=== PATIENT | female | born 1930 | race Caucasian/White ===

== ENCOUNTER 2017-05-22 06:44 | Inpatient (IN) ==
[2017-05-22] MEDS ORDERED: DILTIAZEM 50 MG/10 ML VIAL IV STA ×2 (07:57→09:20)
[2017-05-22] MEDS ORDERED: DILTIAZEM 50 MG/10 ML VIAL IV ONE (07:58)
[2017-05-22 08:27] LABS: Blood Urea Nitrogen 10 MG/DL (7-18); Calcium 8.8 MG/DL (8.5-10.1); Glucose 214 MG/DL (74-106); Magnesium 1.9 MG/DL (1.8-2.4); Osmolality,Calculated 277.8 MOS/KG (273-304); Potassium 3.9 MMOL/L (3.5-5.1); Sodium 137 MMOL/L (136-145)
[2017-05-22 08:31] LABS: Basophils % 0.4 % (0.0-0.8); Eosinophils # 0.3 10*3/uL (0.0-0.87); Eosinophils % 2.8 % (0.00-10.9); Hematocrit 34.6 VOL% (35.7-47.0); Hemoglobin 11.6 GM/DL (12.0-16.0); Immature Granulocytes % 0.5 %; Immature Granulocytes Absolute 0.05 #; Lymphocytes # 1.3 10*3/uL (1.4-4.0); Lymphocytes % 14.4 % (21.3-54.2); Mean Corpuscular HGB Conc 33.5 GM/DL (32-36); Mean Corpuscular Hemoglobin 29 PG (27-34); Mean Corpuscular Volume 87.8 FL (87-102); Monocytes # 0.4 10*3/uL (0.11-0.8); Monocytes % 4.7 % (1.7-12.7); Neutrophils # 7.1 10*3/uL (1.4-7.4); Neutrophils % 77.2 % (38.7-73.9); Platelet Count 238 T/CUMM (130-400); Red Blood Count 3.94 MC/CUMM (3.8-5.5); Red Cell Distribution Width 13.2 % (9.3-17.3); Troponin I Only 0.098 NG/ML (0.00-0.045); White Blood Count 9.2 T/CUMM (4-12)
--- NOTE | 2017-05-22 08:32 | Emergency Department Note ---
IJoe Emily, am scribing for, and in the presence of, Rey Trevino MD 07: 49. Belinda Mujica Charles R, MD, personally performed the services described in this documentation, ascribed by Haleigh Diaz in my presence, and it is both accurate and complete 832 . Arrival - Arrival Chief Complaint: Chest Pain Stated Complaint: chest pain/recent pacemaker ED Nursing Triage Note: TO ER PER WHEELCHAIR WITH COMPLAINT OF SUDDEN ONSET OF CHEST PAIN THAT BEGAIN THIS AM AT 0430. PATIENT STATES IT WOKE HER FROM HER SLEEP. DENIES RADIATION WITH PAIN. FEELS LIKE HER HEART IS RACING. PACEMAKER PLACED 05/16/[address] DIAZ. Mode of Arrival: Wheelchair Limitations: No Limitations Source: Patient Time Seen by Provider: 05/22/17 07:18 - History of Present Illness HPI Narrative: Pt is a 87 y/o female who came to ED with c/o racing heart rate that woke her up at 400 am this morning. Pt notes having issues of heart palpitations that increase or decrease since she was 3 yrs of age. Pt reports having a pacemaker placed on 05/16/[address] Diaz and sees Dr. Baca. Pt has chest burning currently in ED, but denies SOB, nausea, or any other pains. Pt describes chest burning to acid reflux feeling, as "just annoying, nagging." Onset (ago): hour(s) Consistency: constant Severity: mild Severity scale (1-10): 3 Quality: burning Allergies/Adverse Reactions: Allergies Allergy/AdvReac Type Severity Reaction Status Date / Time Sulfa (Sulfonamide Allergy Unknown/Unable Verified 05/22/17 07:16 Antibiotics) to obtain Home Medications: Home Medications Medication Instructions Recorded Confirmed Type Ergocalciferol (Vitamin D2) 50,000 unit PO Q7D 07/09/16 05/16/17 History [Vitamin D2] Lisinopril 10 mg PO DAILY 07/09/16 05/16/17 History Aspirin EC Tab 81 mg PO DAILY 05/15/17 05/16/17 History Glipizide/Metformin HCl 1 each PO BID 05/15/17 05/16/17 History [Glipizide-Metformin 2.5-500 mg] Pantoprazole Tab [Protonix Tab] 40 mg PO DAILY 05/15/17 05/16/17 History Metoprolol Tartrate Tab [Lopressor 50 mg PO BID tablet 05/17/17 Rx Tab] Review of System - Review of System 12 point system: reviewed and no additional remarkable complaints except as stated - Review of System Constitutional: Absent: chills, fever, weakness Head/Ears/Nose/Throat: Absent: nasal drainage Respiratory: Absent: respiratory distress Cardiovascular: Present: palpitations (rapid). Absent: chest pain (chest burning like acid reflux), syncope Gastrointestinal: Absent: abdominal pain, nausea, vomiting Musculoskeletal: Absent: arm pain, neck pain Skin: Absent: rash Neurological: Absent: headache Psychiatric: Absent: anxiety Medical,Surgical,& Family Hx - Medical History Cardio: History of: Cardiac Dysrhythmia, Hypertension, Pacemaker (05/16/17) Neurology: No history of: Seizures Endocrine: History of: Diabetes Mellitus (NIDDM) Respiratory: History of: Asthma Genitourinary: History of: Recurring Urinary Tract Infections Gastrointestinal: History of: GERD Musculoskeletal: History of: Musculoskeletal Problems (left shoulder pain (? arthritis)) - Surgical History HEENT Surgeries: Surgical HX of: Eye Surgery (cataract) Abdominal Surgeries: Surgical HX of: Appendectomy Reproductive Surgeries: Surgical HX of;: Breast Surgery, Hysterectomy - Family History Family History: Reports;: Family Diabetes (mother later in life), Family Hypertension (mother and father) - Social History Smoking Status: Former smoker Frequency of Alcohol Use: None Type of Drug Use: None Marital Status: Single Lives With:: Alone Functional capacity: independent ambulation Exam Vital Signs: Vital Signs Temperature 97.2 F L 05/22/17 06:59 Pulse Rate 133 H 05/22/17 10:15 Respiratory Rate 16 05/22/17 10:15 Blood Pressure 133/85 05/22/17 10:15 O2 Sat by Pulse Oximetry 100 05/22/17 10:15 - General General appearance: alert, in no apparent distress - Head Head exam: Present: atraumatic, normocephalic - Eye Eye exam: Present: PERRL, EOMI - ENT ENT exam: Present: mucous membranes moist. Absent: mucous membranes dry - Neck Neck exam: Present: full ROM, trachea midline - Chest Chest inspection: Present: symmetric chest wall rise - Respiratory Respiratory exam: Present: normal lung sounds bilaterally. Absent: respiratory distress - Cardiovascular Cardiovascular exam: Present: tachycardia, normal heart sounds - Extremities Exam Extremities exam: Present: full ROM. Absent: tenderness, pedal edema - Neurological Exam Neurological exam: Present: alert, oriented X3, CN II-XII intact. Absent: motor sensory deficit - Psychiatric Psychiatric exam: Present: normal affect, normal mood - Skin Skin exam: Present: warm, dry Course - Consultations Consultation #1: Dr. Toro will admit patient Time: 10:32 Results - Labs CBC & BMP: 05/22/17 07:35 05/22/17 07:35 Lab Results: I have reviewed the patients labs Labs: Laboratory Tests 05/22/17 05/22/17 07:35 07:35 Hgb 11.6 L Hct 34.6 L Neut % (Auto) 77.2 H Lymph % (Auto) 14.4 L Lymph # (Auto) 1.3 L Glucose 214 H Troponin I 0.098 H - Diagnostic Findings Procedure: Chest x-ray: report reviewed by me (Interval development of diffuse bilateral interstitial infiltrates versus edema superimposed on chronic changes. ) Disposition Clinical Impression: Atypical chest pain, Tachyarrhythmia, Elevated troponin Case discussed with: patient, patient's family Disposition: Still a Patient Condition: Stable Time of Disposition: 10:33
[2017-05-22] MEDS ORDERED: MORPHINE 2 MG/1 ML SYRINGE IV STA (08:33)
[2017-05-22] MEDS ORDERED: ONDANSETRON 4 MG/2 ML VIAL IV STA (08:33)
[2017-05-22] MEDS ORDERED: NITROGLYCERIN 2% OINT 1 INCH/GM PACK TOP STA (08:33)
[2017-05-22] MEDS ORDERED: ASPIRIN 325 MG TABLET PO STA (08:33)
[2017-05-22] MEDS ORDERED: ALUM/MAG/SIMETH/LIDO VISC 1:1 30 ML BOTTLE PO STA (08:33)
[2017-05-22] MEDS ORDERED: ONDANSETRON 4 MG/2 ML VIAL ONE (08:36)
[2017-05-22] MEDS ORDERED: MORPHINE 2 MG/1 ML SYRINGE ONE (08:36)
[2017-05-22] MEDS ORDERED: ASPIRIN 325 MG TABLET ONE (08:36)
[2017-05-22] MEDS ORDERED: ALUM/MAG/SIMETH/LIDO VISC 1:1 30 ML BOTTLE PO ONE (08:36)
[2017-05-22] MEDS ORDERED: NITROGLYCERIN 2% OINT 1 INCH/GM PACK TOP ONE (08:36)
[2017-05-22 08:49] LABS: INR 0.9
--- NOTE | 2017-05-22 08:55 | XRay Report ---
Chest, 2 views History is palpitations and chest pain Comparison 05/17/2017. Heart is mildly enlarged with pacemaker present The lungs are diffusely hyperexpanded There has been development of increasing mild bilateral interstitial opacities without more focal consolidation. Impression: Interval development of diffuse bilateral interstitial infiltrates versus edema superimposed on chronic changes PROCEDURE INTERPRETED AT [facility] DEPARTMENT OF RADIOLOGY Final Report Signed by: Dr. Mila Mahmood
[2017-05-22] MEDS ORDERED: METOPROLOL TARTRATE 5 MG/5 ML VIAL IV STA (10:32)
[2017-05-22] MEDS ORDERED: METOPROLOL TARTRATE 5 MG/5 ML VIAL IV ONE (10:35)
[2017-05-22] MEDS ORDERED: METOPROLOL TARTRATE 5 MG/5 ML VIAL IV SCH (12:00)
[2017-05-22 12:07] LABS: Alanine Aminotransferase 28 U/L (13-56); Albumin 3.8 G/DL (3.4-5.0); Alkaline Phosphatase 82 U/L (45-117); Aspartate Amino Transferase 23 U/L (0-37); Bilirubin,Total < 0.39 MG/DL (0.2-1.0); Blood Urea Nitrogen 8 MG/DL (7-18); Calcium 9.3 MG/DL (8.5-10.1); Glucose 207 MG/DL (74-106); Potassium 3.9 MMOL/L (3.5-5.1); Sodium 136 MMOL/L (136-145); Total Protein 7.6 G/DL (6.4-8.3)
[2017-05-22] MEDS ORDERED: MAGNESIUM SULF RIDER 2 GM in PREMIX 1 EACH IV PRN (12:13)
[2017-05-22] MEDS ORDERED: ONDANSETRON 4 MG/2 ML VIAL IV PRN (12:13)
[2017-05-22] MEDS ORDERED: MAGNESIUM SULF RIDER 4 GM in PREMIX 1 EACH IV PRN (12:13)
[2017-05-22] MEDS ORDERED: MORPHINE 2 MG/1 ML SYRINGE IV PRN (12:13)
[2017-05-22] MEDS ORDERED: POTASSIUM CHLORIDE 20 MEQ TABLET PO PRN (12:13)
[2017-05-22] MEDS ORDERED: ENOXAPARIN 40 MG/0.4 ML SYRINGE SUBCUT SCH (12:13)
--- NOTE | 2017-05-22 13:18 | Cardiology History & Physical ---
<Mercy Davis - Last Filed: 05/22/17 14:51> Assessment and Plan - Time spent with patient Time spent with patient: Greater than 30 minutes (1) Tachyarrhythmia Status: Acute Assessment and plan: SEE PLAN OF CARE LISTED BELOW. Current Visit: Yes (2) Elevated troponin Status: Acute Assessment and plan: SEE PLAN OF CARE LISTED BELOW. Current Visit: Yes (3) Atypical chest pain Status: Acute Assessment and plan: SEE PLAN OF CARE LISTED BELOW. Current Visit: Yes (4) Pacemaker Status: Acute Assessment and plan: SEE PLAN OF CARE LISTED BELOW. Current Visit: No (5) Diabetes mellitus Status: Chronic Assessment and plan: SEE PLAN OF CARE LISTED BELOW. Current Visit: No (6) Hypertension Status: Chronic Assessment and plan: SEE PLAN OF CARE LISTED BELOW. Current Visit: No (7) PAF (paroxysmal atrial fibrillation) Status: Chronic Assessment and plan: SEE PLAN OF CARE LISTED BELOW. Current Visit: No (8) Sick sinus syndrome Status: Resolved Assessment and plan: SEE PLAN OF CARE LISTED BELOW. Current Visit: No History of Present Illness Chief complaint: Tachyarrhythmia. 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 Perez is a 87 year old female without known history of coronary artery disease, routinely followed by Dr. Baca. Cardiac risk factors include: Diabetes, hypertension, advanced age, family history of CAD (mother) and former smoker (quit in 1954). 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 Diaz May 16, 2017. Most recent cardiac stress test was performed in 2004. Gated EF estimated at 75%. Normal segmental wall motion. Perfusion scan without evidence to suggest significant reversibility or scar. Low risk study. Echocardiogram performed June 2016 revealed hyperdynamic LV systolic function with ejection fraction estimated at 70% without obvious wall motion abnormality. Moderate pulmonary hypertension with pulmonary artery pressure 48 mmHg. Patient was just recently discharged from the hospital May 17, 2017 after having pacemaker implantation May. Patient was without complications. At the time of discharge home, her Eliquis was held. She has not followed up with Dr. Diaz cardiology clinic yet. Now presenting to [facility] today with complaints of chest pain and heart racing. She reports that she was awoken around 4:00 this morning with atypical chest pain. She describes his pain as a burning sensation. She associated this with reflux. Nonradiating. Not associated with shortness of breath, lightheadedness or syncope. Denies nausea and diaphoresis. No exertional component. Associated with heart racing and palpitations. This atypical chest pain and heart racing continued until she arrived in the emergency department around 7 AM and received medications to slow her heart rate. She just recently discharged home last week after having pacemaker. She reports that she has been doing reasonably well until early this morning. She has not been taking her Eliquis as this was discontinued at discharge. No TIA symptoms. Patient has been admitted under cardiology service. Housed on the telemetry unit. Patient was seen and examined on the telemetry unit. Patient is without complaints of chest pain, heaviness or tightness. After reviewing patient's cardiac monitor technician I suspect that patient is in atrial flutter with rapid ventricular response as rhythm appears regular. No P waves identified. Elevated troponin. Suspect demand ischemia related to patient's ongoing RVR. Will optimize rate control and continue to level cardiac biomarkers and EKGs. If complaints of chest pain continue after rate control achieved could consider further cardiac workup. Patient with history of paroxysmal A. fib. RVR continues, heart rate currently in the 130s. Patient asymptomatic. Will optimize rate control. Received IV diltiazem and emergency department. Will initiate Cardizem drip. Nurse at bedside and administering IV Lopressor. Will reinitiate patient's Eliquis to provide stroke prevention. We will begin sotalol. Monitor QT interval with daily EKG. I will further discuss with Dr. Toro and await his additional recommendations. IMPRESSION AND PLAN: 1. TACHYARRHYTHMIA, SUSPECT ATRIAL FLUTTER WITH RAPID VENTRICULAR RESPONSE: Patient with history of paroxysmal A. fib. RVR continues, heart rate currently in the 130s. Patient asymptomatic. Will optimize rate control. Received IV diltiazem and emergency department. Will initiate Cardizem drip. Nurse at bedside, administering IV Lopressor. Will reinitiate patient's Eliquis to provide stroke prevention. We will begin sotalol. Monitor QT interval with daily EKG. Echocardiogram ordered. Results pending. I will further discuss with Dr. Toro and await his additional recommendations. 2. ATYPICAL CHEST PAIN: Suspect demand ischemia related to patient's ongoing RVR. Will optimize rate control. If patient continues to have complaints of chest pain after heart rate has been optimized and consider further cardiac workup. Continue to cycle cardiac biomarkers and EKGs. Fasting lipid panel. Further discuss with Dr. Toro and await his additional recommendations regarding the need for further workup. 3. ELEVATED TROPONIN: Suspect that this is demand ischemia related to patient' s RVR. We will continue to cycle cardiac biomarkers and EKGs. Patient now without chest pain, heaviness or tightness. Continue aspirin. Fasting lipid panel. Will get echocardiogram. Results pending. 4. SICK SINUS SYNDROME, NOW STATUS POST DUAL-CHAMBER PACEMAKER: Dual-chamber pacemaker placed Dr. Diaz May 16, 2017. Pacemaker pocket healing well without signs of infection. 5. HYPERTENSION: Home medications reinitiated. Will monitor blood pressure and adjust medications accordingly this hospitalization. 6. DIABETES: Sliding scale insulin. Accu-Cheks before meals and at bedtime. 7. CHRONIC ANTICOAGULATION: Patient's Eliquis was not reinitiated at discharge last week. I will reinitiate patient's Eliquis dosage for stroke prevention. 8. ANEMIA: Stable. Monitor with daily CBC. Home Medications Medication Instructions Recorded Confirmed Type Ergocalciferol (Vitamin D2) 50,000 unit PO Q7D 07/09/16 05/22/17 History [Vitamin D2] Lisinopril 10 mg PO DAILY 07/09/16 05/22/17 History Aspirin EC Tab 81 mg PO DAILY 05/15/17 05/22/17 History Glipizide/Metformin HCl 1 each PO BID 05/15/17 05/22/17 History [Glipizide-Metformin 2.5-500 mg] Pantoprazole Tab [Protonix Tab] 40 mg PO DAILY 05/15/17 05/22/17 History Metoprolol Tartrate Tab [Lopressor 50 mg PO BID tablet 05/17/17 05/22/17 Rx Tab] Allergies Allergy/AdvReac Type Severity Reaction Status Date / Time Sulfa (Sulfonamide Allergy Unknown/Unable Verified 05/22/17 07:16 Antibiotics) to obtain - Constitutional Constitutional: Present: as per HPI, fatigue, malaise, weakness. Absent: chills , fever(s), frequent falls, headache(s), lethargy, weight gain, weight loss - Cardiovascular Cardiovascular: Present: as per HPI, chest pain at rest, palpitations. Absent: chest pain with activity, claudication, diaphoresis, dyspnea, dyspnea on exertion, edema, radiating jaw, neck or arm pain, lightheadedness, orthopnea, PND - Respiratory Respiratory: Present: as per HPI. Absent: cough, dyspnea, hemoptysis, dyspnea on exertion, wheezing, snoring, pain on inspiration, change in phlegm color - Gastrointestinal Gastrointestinal: Present: as per HPI, heartburn. Absent: abdominal pain, change in bowel habits, coffee ground emesis, hematemesis, hematochezia, melena , nausea, vomiting - Neurological Neurological: Present: as per HPI. Absent: abnormal gait, abnormal speech, behavioral changes, disequilibrium, dizziness, focal weakness, frequent falls, headache(s), syncope - Psychiatric Psychiatric: Present: as per HPI. Absent: anxiety, depression, panic attacks - Hematologic/Lymphatic Hematologic/Lymphatic: Present: as per HPI. 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 arthritis)) - Surgical History HEENT Surgeries: Surgical HX of: Eye Surgery (cataract) Abdominal Surgeries: Surgical HX of: Abdominal Surgery, Appendectomy Reproductive Surgeries: Surgical HX of;: Breast Surgery, Hysterectomy - Family History Family History: Reports;: Family Diabetes (mother later in life), Family Heart Disease, Family Hypertension (mother and father) - Social History Smoking Status: Former smoker Frequency of Alcohol Use: None Type of Drug Use: None Functional capacity: independent ambulation Cardiology Physical Exam - Constitutional Vitals: Vital Signs Temp Pulse Resp BP Pulse Ox 97.2 F L 138 H 20 158/96 94 L 05/22/17 06:59 05/22/17 12:18 05/22/17 12:18 05/22/17 12:18 05/22/17 12:18 Intake and Output 05/21/17 05/22/17 05/22/17 22:59 06:59 14:59 Other: Weight 130 lb 130 lb Patient Weight 05/23/17 06:59 Weight 130 lb Exam: General: Appears well with no apparent distress. Pleasant and cooperative. Appears comfortable. HEENT: PERRL, normocephalic, atraumatic. Mucous membranes moist. No jaundice noted. Conjunctiva moist and clear, sclerae anicteric Neck: No JVD/HJR, no thyromegaly or lymphadenopathy noted. Cardiac: Regular rhythm, tachycardia. No murmur rub or gallop. Chest wall: Dressing noted to left upper chest. Pacemaker pocket healing well without signs of infection. Lungs: Clear to auscultation without accessory muscle use to assist the respiratory pattern. Not requiring oxygen. Abdomen: Soft, bowel sounds normoactive. Nontender and nondistended. No abdominal bruit or thrill noted. No masses noted. Extremities: No clubbing, cyanosis noted. No edema noted. Upper extremity pulses 2+. Lower extremity pulses 2+. Capillary refill less than 3 seconds. Skin: No unusual lesions or rashes. No skin breakdown appreciated. Neuro: Awake, alert and oriented 3. Moves all extremities well without hemiparesis or paralysis. No essential tremor is appreciated. Result/EKG - Labs CBC & BMP: 05/22/17 07:35 05/22/17 07:35 Lab Results: I have reviewed the past 24 hour labs Labs: Laboratory Results - last 24 hr 05/22/17 05/22/17 05/22/17 07:35 07:35 07:35 WBC 9.2 RBC 3.94 Hgb 11.6 L Hct 34.6 L MCV 87.8 MCH 29 MCHC 33.5 RDW 13.2 Plt Count 238 MPV 12.0 Neut % (Auto) 77.2 H Lymph % (Auto) 14.4 L Greer % (Auto) 4.7 Eos % (Auto) 2.8 Baso % (Auto) 0.4 Neut # (Auto) 7.1 Lymph # (Auto) 1.3 L Greer # (Auto) 0.4 Eos # (Auto) 0.3 Baso # (Auto) 0.0 Immature Gran % 0.5 Nucleated RBC % 0.0 Immature Gran # 0.05 Nucleated RBCs # 0.00 Immature Plt Fraction 0.0 INR 0.9 PT Patient/Control Mix 10.0 Sodium 137 Potassium 3.9 Chloride 102 Carbon Dioxide 26 Anion Gap 12.9 BUN 10 Creatinine 0.80 GFR Calculation 64 BUN/Creatinine Ratio 12.00 Glucose 214 H Calculated Osmolality 277.8 Calcium 8.8 Magnesium 1.9 Total Bilirubin AST ALT Alkaline Phosphatase Total Creatine Kinase 94 CK-MB (CK-2) 1.5 Troponin I 0.098 H B-Natriuretic Peptide Total Protein Albumin Globulin Albumin/Globulin Ratio 05/22/17 05/22/17 07:35 08:33 WBC RBC Hgb Hct MCV MCH MCHC RDW Plt Count MPV Neut % (Auto) Lymph % (Auto) Greer % (Auto) Eos % (Auto) Baso % (Auto) Neut # (Auto) Lymph # (Auto) Greer # (Auto) Eos # (Auto) Baso # (Auto) Immature Gran % Nucleated RBC % Immature Gran # Nucleated RBCs # Immature Plt Fraction INR PT Patient/Control Mix Sodium 136 Potassium 3.9 Chloride 102 Carbon Dioxide 25 Anion Gap 12.9 BUN 8 Creatinine 0.70 GFR Calculation 76 BUN/Creatinine Ratio 11.00 Glucose 207 H Calculated Osmolality 275.0 Calcium 9.3 Magnesium 2.0 Total Bilirubin < 0.39 AST 23 ALT 28 Alkaline Phosphatase 82 Total Creatine Kinase CK-MB (CK-2) Troponin I B-Natriuretic Peptide 162 H Total Protein 7.6 Albumin 3.8 Globulin 3.8 H Albumin/Globulin Ratio 1.0 L <Jake Toro - Last Filed: 05/22/17 15:10> History of Present Illness History of present illness: Cardiology addendum Patient seen with nurse Mercy davis and chart reviewed patient examined Recurrent palpitations shortness of breath around 4 AM this morning. EKG shows atrial flutter ventricular rate 130-140 range. Chest x-ray shows hyperexpanded lung duron with mild cardiomegaly and early CHF. BNP level 162. Troponin level 1.94 hemoglobin 11.6 She denies chest pain but feels short of breath Status post [employer] Advisa dual-chamber pacemaker May 16, 2017 by . She has history of sick sinus syndrome with tachycardia and bradycardia and paroxysmal atrial fibrillation. Patient was discharged home on December 18 with Lopressor 50 mg twice daily and Eliquis 2.3 g twice daily. Also takes lisinopril 10 mg daily for hypertension. He also takes glipizide and Metformin 2.5/500 twice daily for type 2 diabetes. Impression Patient has failed Lopressor. Begin sotalol 80 mg twice daily and IV Cardizem for rate control for now Continue Eliquis 2.5 mg twice daily Echo Doppler Repeat biomarkers. Discussed with patient, her daughter and her son-in-law Cardiology Physical Exam - Constitutional Vitals: Vital Signs Temp Pulse Resp BP Pulse Ox 97.2 F L 138 H 20 158/96 94 L 05/22/17 06:59 05/22/17 12:18 05/22/17 12:18 05/22/17 12:18 05/22/17 12:18 Intake and Output 05/21/17 05/22/17 05/22/17 23:59 07:59 15:59 Other: Voiding Method Toilet # Voids 1 Weight 58.967 kg 58.967 kg Patient Weight 05/22/17 23:59 Weight 58.967 kg Result/EKG - Labs CBC & BMP: 05/22/17 07:35 05/22/17 07:35 Labs: Laboratory Results - last 24 hr 05/22/17 05/22/17 05/22/17 07:35 07:35 07:35 WBC 9.2 RBC 3.94 Hgb 11.6 L Hct 34.6 L MCV 87.8 MCH 29 MCHC 33.5 RDW 13.2 Plt Count 238 MPV 12.0 Neut % (Auto) 77.2 H Lymph % (Auto) 14.4 L Greer % (Auto) 4.7 Eos % (Auto) 2.8 Baso % (Auto) 0.4 Neut # (Auto) 7.1 Lymph # (Auto) 1.3 L Greer # (Auto) 0.4 Eos # (Auto) 0.3 Baso # (Auto) 0.0 Immature Gran % 0.5 Nucleated RBC % 0.0 Immature Gran # 0.05 Nucleated RBCs # 0.00 Immature Plt Fraction 0.0 INR 0.9 PT Patient/Control Mix 10.0 Sodium 137 Potassium 3.9 Chloride 102 Carbon Dioxide 26 Anion Gap 12.9 BUN 10 Creatinine 0.80 GFR Calculation 64 BUN/Creatinine Ratio 12.00 Glucose 214 H POC Glucose Calculated Osmolality 277.8 Calcium 8.8 Magnesium 1.9 Total Bilirubin AST ALT Alkaline Phosphatase Total Creatine Kinase 94 CK-MB (CK-2) 1.5 Troponin I 0.098 H B-Natriuretic Peptide Total Protein Albumin Globulin Albumin/Globulin Ratio 05/22/17 05/22/17 05/22/17 07:35 08:33 12:47 WBC RBC Hgb Hct MCV MCH MCHC RDW Plt Count MPV Neut % (Auto) Lymph % (Auto) Greer % (Auto) Eos % (Auto) Baso % (Auto) Neut # (Auto) Lymph # (Auto) Greer # (Auto) Eos # (Auto) Baso # (Auto) Immature Gran % Nucleated RBC % Immature Gran # Nucleated RBCs # Immature Plt Fraction INR PT Patient/Control Mix Sodium 136 Potassium 3.9 Chloride 102 Carbon Dioxide 25 Anion Gap 12.9 BUN 8 Creatinine 0.70 GFR Calculation 76 BUN/Creatinine Ratio 11.00 Glucose 207 H POC Glucose Calculated Osmolality 275.0 Calcium 9.3 Magnesium 2.0 Total Bilirubin < 0.39 AST 23 ALT 28 Alkaline Phosphatase 82 Total Creatine Kinase CK-MB (CK-2) Troponin I 1.940 H D B-Natriuretic Peptide 162 H Total Protein 7.6 Albumin 3.8 Globulin 3.8 H Albumin/Globulin Ratio 1.0 L 05/22/17 13:57 WBC RBC Hgb Hct MCV MCH MCHC RDW Plt Count MPV Neut % (Auto) Lymph % (Auto) Greer % (Auto) Eos % (Auto) Baso % (Auto) Neut # (Auto) Lymph # (Auto) Greer # (Auto) Eos # (Auto) Baso # (Auto) Immature Gran % Nucleated RBC % Immature Gran # Nucleated RBCs # Immature Plt Fraction INR PT Patient/Control Mix Sodium Potassium Chloride Carbon Dioxide Anion Gap BUN Creatinine GFR Calculation BUN/Creatinine Ratio Glucose POC Glucose 148 H Calculated Osmolality Calcium Magnesium Total Bilirubin AST ALT Alkaline Phosphatase Total Creatine Kinase CK-MB (CK-2) Troponin I B-Natriuretic Peptide Total Protein Albumin Globulin Albumin/Globulin Ratio
[2017-05-22] MEDS ORDERED: ERGOCALCIFEROL 50,000 UNIT CAPSULE PO SCH (13:30)
--- NOTE | 2017-05-22 14:07 | Order Completion Report ---
See report scanned to EMR
[2017-05-22] MEDS ORDERED: SODIUM CHLORIDE 0.9% 50 ML IV ONE (14:48)
[2017-05-22] MEDS ORDERED: DILTIAZEM 100 MG VIAL.ADD IV ONE (14:48)
[2017-05-22] MEDS ORDERED: SODIUM CHLORIDE 0.9% 100 ML IV ONE (14:50)
--- NOTE | 2017-05-22 14:50 | Order Completion Report ---
See report scanned to EMR
[2017-05-22] MEDS: SODIUM CHLORIDE 0.9% 1,000 ML IV SCH (15:37)
[2017-05-22] MEDS: INSULIN REGULAR 100 UNIT/ML SUBCUT SCH ×2 (15:37→20:34)
[2017-05-22] MEDS: DILTIAZEM INJ 100 MG in SODIUM CHLORIDE 0.9% 100 ML IV SCH ×2 (15:37→21:00)
[2017-05-22] MEDS: SOTALOL 80 MG TABLET PO SCH ×2 (15:43→20:28)
[2017-05-22 16:34] LABS: CKMB % 8.3 %
[2017-05-22 16:40] LABS: Troponin I Only 3.49 NG/ML (0.00-0.045)
[2017-05-22 20:09] LABS: CKMB % 8.1 %
[2017-05-22 20:13] LABS: Troponin I Only 5.08 NG/ML (0.00-0.045)
[2017-05-22] MEDS: APIXABAN 2.5 MG TABLET PO SCH (20:28)
[2017-05-22] MEDS: POLYETHYLENE GLYCOL POWDER 17 GM PACK PO PRN (20:29)
[2017-05-22] MEDS ORDERED: glyBURIDE/METFORMIN 2.5-500 MG TABLET PO SCH (21:00)
[2017-05-22 22:43] LABS: CKMB % 7.3 %
[2017-05-22 22:45] LABS: Troponin I Only 6.27 NG/ML (0.00-0.045)
[2017-05-23 03:56] LABS: Basophils # 0.1 10*3/uL (0.0-0.2); Basophils % 0.6 % (0.0-0.8); Eosinophils # 0.5 10*3/uL (0.0-0.87); Eosinophils % 6.2 % (0.00-10.9); Hematocrit 33.1 VOL% (35.7-47.0); Hemoglobin 11.1 GM/DL (12.0-16.0); Immature Granulocytes % 0.4 %; Immature Granulocytes Absolute 0.03 #; Lymphocytes # 2.8 10*3/uL (1.4-4.0); Lymphocytes % 33.4 % (21.3-54.2); Mean Corpuscular HGB Conc 33.5 GM/DL (32-36); Mean Corpuscular Hemoglobin 30 PG (27-34); Mean Platelet Volume 11.9 FL (9.6-12.0); Monocytes # 0.7 10*3/uL (0.11-0.8); Monocytes % 8.7 % (1.7-12.7); Neutrophils # 4.3 10*3/uL (1.4-7.4); Neutrophils % 50.7 % (38.7-73.9); Platelet Count 236 T/CUMM (130-400); Red Blood Count 3.76 MC/CUMM (3.8-5.5); Red Cell Distribution Width 13.1 % (9.3-17.3); White Blood Count 8.4 T/CUMM (4-12)
[2017-05-23 04:21] LABS: Calcium 9.4 MG/DL (8.5-10.1); Osmolality,Calculated 284.3 MOS/KG (273-304); Potassium 4.1 MMOL/L (3.5-5.1)
[2017-05-23 04:31] LABS: Albumin 3.2 G/DL (3.4-5.0); Bilirubin,Total 0.6 MG/DL (0.2-1.0); Calcium 9.3 MG/DL (8.5-10.1); Osmolality,Calculated 281.4 MOS/KG (273-304); Potassium 4.1 MMOL/L (3.5-5.1); Risk Ratio 3.98; Total Protein 6.2 G/DL (6.4-8.3)
[2017-05-23 04:36] LABS: Free T4 (Free Thyroxine) 0.95 NG/DL (0.76-1.46); Thyroid Stimulating Hormone 3.45 uIU/ml (0.358-3.74)
[2017-05-23 04:46] LABS: CKMB % 7.9 %; Troponin I Only 6.58 NG/ML (0.00-0.045)
--- NOTE | 2017-05-23 07:28 | XRay Report ---
History is short of breath Comparison 05/22/2017 The heart is enlarged with pacemaker present No congestive failure or confluent infiltrate is seen. Prior interstitial edema has cleared. Rib calcifications overlie the lung bases Impression: Interval clearing of prior interstitial edema PROCEDURE INTERPRETED AT [facility] DEPARTMENT OF RADIOLOGY Final Report Signed by: Dr. Mila Mahmood
--- NOTE | 2017-05-23 07:59 | Order Completion Report ---
See report scanned to EMR
[2017-05-23] MEDS: ASPIRIN EC 81 MG TABLET PO SCH (09:13)
[2017-05-23] MEDS: APIXABAN 2.5 MG TABLET PO SCH ×2 (09:13→20:11)
[2017-05-23] MEDS: LISINOPRIL 10 MG TABLET PO SCH (09:13)
[2017-05-23] MEDS: SOTALOL 80 MG TABLET PO SCH ×2 (09:13→20:11)
[2017-05-23] MEDS: INSULIN REGULAR 100 UNIT/ML SUBCUT SCH ×4 (09:18→20:38)
[2017-05-23] MEDS: PANTOPRAZOLE 40 MG TABLET PO SCH (09:18)
[2017-05-23 09:34] LABS: CKMB % 6.2 %
[2017-05-23 09:35] LABS: Troponin I Only 5.64 NG/ML (0.00-0.045)
[2017-05-23] MEDS: DILTIAZEM INJ 100 MG in SODIUM CHLORIDE 0.9% 100 ML IV SCH ×2 (09:53→15:35)
[2017-05-23] MEDS: SODIUM CHLORIDE 0.9% 1,000 ML IV SCH ×2 (09:53→20:10)
--- NOTE | 2017-05-23 10:19 | Cardiology Progress Note ---
Cardiology - PN: Subj Interval history: Cardiology note Cardiology note 87 year old woman status post Medtronic Advisa dual-chamber pacemaker May by Dr. Diaz. She has history of sick sinus syndrome with tachycardia and bradycardia and paroxysmal atrial fibrillation. Patient was just discharged on December 18 on Lopressor 50 mg twice daily and Eliquis 2.5 mg twice daily. She returned yesterday with palpitations and shortness of breath and was in atrial flutter. Currently on IV Cardizem and sotalol 80 mg twice daily. Patient is impatient about why this is taking so long to fix. Long talk with her daughter Destini and son-in-law Dmitri. Telemetry shows atrial fib ventricular rate around 110 Blood pressure 130/74 Irregular rhythm soft systolic murmur Pacer pocket looks good Decreased breath sounds but clear No leg edema Lab data today White count 8.4 hemoglobin 11.1 hematocrit 33.1 Sodium 140 potassium 4.1 chloride 104 CO2 28 BUN 13 creatinine 0.70 Magnesium 2.0 glucose 190 BNP 606 Troponin 6.27 this is due to CHF and atrial fibrillation. She has had no chest pain. Plan Increase sotalol 160 mg twice daily IV Cardizem Continue Eliquis 2.5 mg twice daily Echo Doppler I have discussed potential cardioversion with the patient and her daughter Destini and son-in-law Dmitri. Exam (Progress Note) - Constitutional Vitals: Period Temp Pulse Resp BP Sys/Dawson Pulse Ox Last 24 Hr 97.4 F-98.4 F 66-138 16-116 120-158/62-96 94-100 Result/EKG - Labs CBC & BMP: 05/23/17 03:10 05/23/17 03:10 Labs: Laboratory Results - last 24 hr 05/22/17 05/22/17 05/22/17 07:35 08:33 12:47 WBC RBC Hgb Hct MCV MCH MCHC RDW Plt Count MPV Neut % (Auto) Lymph % (Auto) [place] % (Auto) Eos % (Auto) Baso % (Auto) Neut # (Auto) Lymph # (Auto) [place] # (Auto) Eos # (Auto) Baso # (Auto) Immature Gran % Nucleated RBC % Immature Gran # Nucleated RBCs # Immature Plt Fraction Sodium 136 Potassium 3.9 Chloride 102 Carbon Dioxide 25 Anion Gap 12.9 BUN 8 Creatinine 0.70 GFR Calculation 76 BUN/Creatinine Ratio 11.00 Glucose 207 H POC Glucose Calculated Osmolality 275.0 Calcium 9.3 Magnesium 2.0 Total Bilirubin < 0.39 AST 23 ALT 28 Alkaline Phosphatase 82 Total Creatine Kinase CK-MB (CK-2) CK and CKMB Interp Troponin I 1.940 H D B-Natriuretic Peptide 162 H Total Protein 7.6 Albumin 3.8 Globulin 3.8 H Albumin/Globulin Ratio 1.0 L Triglycerides Cholesterol LDL Cholesterol VLDL Cholesterol HDL Cholesterol Heart Disease Risk Ratio Free T4 TSH 3rd Generation 05/22/17 05/22/17 05/22/17 13:57 15:02 15:53 WBC RBC Hgb Hct MCV MCH MCHC RDW Plt Count MPV Neut % (Auto) Lymph % (Auto) [place] % (Auto) Eos % (Auto) Baso % (Auto) Neut # (Auto) Lymph # (Auto) [place] # (Auto) Eos # (Auto) Baso # (Auto) Immature Gran % Nucleated RBC % Immature Gran # Nucleated RBCs # Immature Plt Fraction Sodium Potassium Chloride Carbon Dioxide Anion Gap BUN Creatinine GFR Calculation BUN/Creatinine Ratio Glucose POC Glucose 148 H 152 H Calculated Osmolality Calcium Magnesium Total Bilirubin AST ALT Alkaline Phosphatase Total Creatine Kinase 173 D CK-MB (CK-2) 14.4 H D CK and CKMB Interp 8.3 Troponin I 3.490 H D B-Natriuretic Peptide Total Protein Albumin Globulin Albumin/Globulin Ratio Triglycerides Cholesterol LDL Cholesterol VLDL Cholesterol HDL Cholesterol Heart Disease Risk Ratio Free T4 TSH 3rd Generation 05/22/17 05/22/17 05/22/17 18:56 19:27 21:47 WBC RBC Hgb Hct MCV MCH MCHC RDW Plt Count MPV Neut % (Auto) Lymph % (Auto) [place] % (Auto) Eos % (Auto) Baso % (Auto) Neut # (Auto) Lymph # (Auto) [place] # (Auto) Eos # (Auto) Baso # (Auto) Immature Gran % Nucleated RBC % Immature Gran # Nucleated RBCs # Immature Plt Fraction Sodium Potassium Chloride Carbon Dioxide Anion Gap BUN Creatinine GFR Calculation BUN/Creatinine Ratio Glucose POC Glucose 227 H Calculated Osmolality Calcium Magnesium Total Bilirubin AST ALT Alkaline Phosphatase Total Creatine Kinase 149 146 CK-MB (CK-2) 12.0 H 10.7 H CK and CKMB Interp 8.1 7.3 Troponin I 5.080 H D 6.270 H D B-Natriuretic Peptide Total Protein Albumin Globulin Albumin/Globulin Ratio Triglycerides Cholesterol LDL Cholesterol VLDL Cholesterol HDL Cholesterol Heart Disease Risk Ratio Free T4 TSH 3rd Generation 05/23/17 05/23/17 05/23/17 03:10 03:10 03:10 WBC 8.4 RBC 3.76 L Hgb 11.1 L Hct 33.1 L MCV 88.0 MCH 30 MCHC 33.5 RDW 13.1 Plt Count 236 MPV 11.9 Neut % (Auto) 50.7 Lymph % (Auto) 33.4 [place] % (Auto) 8.7 Eos % (Auto) 6.2 Baso % (Auto) 0.6 Neut # (Auto) 4.3 Lymph # (Auto) 2.8 [place] # (Auto) 0.7 Eos # (Auto) 0.5 Baso # (Auto) 0.1 Immature Gran % 0.4 Nucleated RBC % 0.0 Immature Gran # 0.03 Nucleated RBCs # 0.00 Immature Plt Fraction 0.0 Sodium 141 Potassium 4.1 Chloride 104 Carbon Dioxide 28 Anion Gap 13.1 BUN 14 Creatinine 0.60 GFR Calculation 79 BUN/Creatinine Ratio 23.00 H Glucose 158 H POC Glucose Calculated Osmolality 284.3 Calcium 9.4 Magnesium 2.0 Total Bilirubin AST ALT Alkaline Phosphatase Total Creatine Kinase 119 CK-MB (CK-2) 9.4 H CK and CKMB Interp 7.9 Troponin I 6.580 H B-Natriuretic Peptide Total Protein Albumin Globulin Albumin/Globulin Ratio Triglycerides Cholesterol LDL Cholesterol VLDL Cholesterol HDL Cholesterol Heart Disease Risk Ratio Free T4 TSH 3rd Generation 05/23/17 05/23/17 05/23/17 03:10 03:10 03:10 WBC RBC Hgb Hct MCV MCH MCHC RDW Plt Count MPV Neut % (Auto) Lymph % (Auto) [place] % (Auto) Eos % (Auto) Baso % (Auto) Neut # (Auto) Lymph # (Auto) [place] # (Auto) Eos # (Auto) Baso # (Auto) Immature Gran % Nucleated RBC % Immature Gran # Nucleated RBCs # Immature Plt Fraction Sodium 140 Potassium 4.1 Chloride 104 Carbon Dioxide 28 Anion Gap 12.1 BUN 13 Creatinine 0.70 GFR Calculation 76 BUN/Creatinine Ratio 18.00 Glucose 151 H POC Glucose Calculated Osmolality 281.4 Calcium 9.3 Magnesium Total Bilirubin 0.60 AST 22 ALT 19 Alkaline Phosphatase 71 Total Creatine Kinase CK-MB (CK-2) CK and CKMB Interp Troponin I B-Natriuretic Peptide 606 H Total Protein 6.2 L Albumin 3.2 L Globulin 3.0 Albumin/Globulin Ratio 1.0 L Triglycerides 250 H Cholesterol 207 H LDL Cholesterol 119.0 VLDL Cholesterol 50.0 HDL Cholesterol 52 Heart Disease Risk Ratio 3.98 Free T4 0.95 TSH 3rd Generation 3.450 05/23/17 05/23/17 07:37 08:33 WBC RBC Hgb Hct MCV MCH MCHC RDW Plt Count MPV Neut % (Auto) Lymph % (Auto) [place] % (Auto) Eos % (Auto) Baso % (Auto) Neut # (Auto) Lymph # (Auto) [place] # (Auto) Eos # (Auto) Baso # (Auto) Immature Gran % Nucleated RBC % Immature Gran # Nucleated RBCs # Immature Plt Fraction Sodium Potassium Chloride Carbon Dioxide Anion Gap BUN Creatinine GFR Calculation BUN/Creatinine Ratio Glucose POC Glucose 190 H Calculated Osmolality Calcium Magnesium Total Bilirubin AST ALT Alkaline Phosphatase Total Creatine Kinase 112 CK-MB (CK-2) 6.9 H CK and CKMB Interp 6.2 Troponin I 5.640 H B-Natriuretic Peptide Total Protein Albumin Globulin Albumin/Globulin Ratio Triglycerides Cholesterol LDL Cholesterol VLDL Cholesterol HDL Cholesterol Heart Disease Risk Ratio Free T4 TSH 3rd Generation
[2017-05-23] MEDS: POLYETHYLENE GLYCOL POWDER 17 GM PACK PO PRN (19:43)
[2017-05-24 05:19] LABS: Basophils % 0.4 % (0.0-0.8); Eosinophils # 0.7 10*3/uL (0.0-0.87); Eosinophils % 10.4 % (0.00-10.9); Hematocrit 29.7 VOL% (35.7-47.0); Hemoglobin 9.9 GM/DL (12.0-16.0); Immature Granulocytes % 0.1 %; Immature Granulocytes Absolute 0.01 #; Lymphocytes # 2.7 10*3/uL (1.4-4.0); Lymphocytes % 39.3 % (21.3-54.2); Mean Corpuscular HGB Conc 33.3 GM/DL (32-36); Mean Corpuscular Hemoglobin 30 PG (27-34); Mean Corpuscular Volume 88.4 FL (87-102); Mean Platelet Volume 11.5 FL (9.6-12.0); Monocytes # 0.5 10*3/uL (0.11-0.8); Monocytes % 7.4 % (1.7-12.7); Neutrophils # 2.9 10*3/uL (1.4-7.4); Neutrophils % 42.4 % (38.7-73.9); Platelet Count 223 T/CUMM (130-400); Red Blood Count 3.36 MC/CUMM (3.8-5.5); Red Cell Distribution Width 13.3 % (9.3-17.3); White Blood Count 6.9 T/CUMM (4-12)
[2017-05-24 05:54] LABS: Calcium 8.9 MG/DL (8.5-10.1); Magnesium 2.1 MG/DL (1.8-2.4); Osmolality,Calculated 287.1 MOS/KG (273-304); Potassium 4.6 MMOL/L (3.5-5.1)
[2017-05-24] MEDS: DILTIAZEM INJ 100 MG in SODIUM CHLORIDE 0.9% 100 ML IV SCH (06:10)
--- NOTE | 2017-05-24 07:22 | Order Completion Report ---
See report scanned to EMR
[2017-05-24] MEDS: INSULIN REGULAR 100 UNIT/ML SUBCUT SCH ×2 (08:11→13:08)
[2017-05-24] MEDS: APIXABAN 2.5 MG TABLET PO SCH (08:12)
[2017-05-24] MEDS: LISINOPRIL 10 MG TABLET PO SCH (08:12)
[2017-05-24] MEDS: SOTALOL 80 MG TABLET PO SCH (08:12)
[2017-05-24] MEDS: PANTOPRAZOLE 40 MG TABLET PO SCH (08:13)
[2017-05-24] MEDS: ASPIRIN EC 81 MG TABLET PO SCH (08:18)
--- NOTE | 2017-05-24 10:42 | Cardiology Progress Note ---
Cardiology - PN: Subj Interval history: Cardiology note 87-year-old woman admitted with palpitations and shortness of breath and atrial flutter ventricular rate 130-140. She had failed metoprolol 50 mg twice daily. Patient has converted chemically with sotalol 160 mg twice daily. She walked twice last night with her walker and family and she has walked 3 laps this morning on the telemetry floor. Telemetry shows atrial pacing O2 sat 95% on 2 L Blood pressure 136/76 Decreased breath sounds but clear Regular rhythm no gallop No leg edema Impression Status post Medtronic Advisa dual-chamber pacemaker May 16, [address] Diaz. Sick sinus syndrome with tachycardia/bradycardia components and paroxysmal atrial fibrillation Chronic anticoagulation Chronic hypertension Troponin elevation was due to atrial flutter Plan Home today Sotalol 160 mg twice daily Eliquis 2.5 mg twice daily Lisinopril 10 mg daily Metoprolol has been discontinued Continue other home medications Office visit with EKG with Dr. Baca in 1 week Findings and plan discussed with patient and with her daughters Destini and Dee Dee and son-in-law Dmitri. Exam (Progress Note) - Constitutional Vitals: Period Temp Pulse Resp BP Sys/[place] Pulse Ox Last 24 Hr 97.3 F-100.6 F 60-62 18-20 119-152/55-71 95-97 Result/EKG - Labs CBC & BMP: 05/24/17 04:57 05/24/17 04:57 Labs: Laboratory Results - last 24 hr 05/23/17 05/23/17 05/23/17 11:26 14:01 15:09 WBC RBC Hgb Hct MCV MCH MCHC RDW Plt Count MPV Neut % (Auto) Lymph % (Auto) [place] % (Auto) Eos % (Auto) Baso % (Auto) Neut # (Auto) Lymph # (Auto) [place] # (Auto) Eos # (Auto) Baso # (Auto) Immature Gran % Nucleated RBC % Immature Gran # Nucleated RBCs # Immature Plt Fraction Sodium Potassium Chloride Carbon Dioxide Anion Gap BUN Creatinine GFR Calculation BUN/Creatinine Ratio Glucose POC Glucose 299 H 209 H Calculated Osmolality Calcium Magnesium Total Creatine Kinase 94 CK-MB (CK-2) 4.7 H Troponin I 4.100 H D 05/23/17 05/24/17 05/24/17 18:51 04:57 04:57 WBC 6.9 RBC 3.36 L Hgb 9.9 L Hct 29.7 L MCV 88.4 MCH 30 MCHC 33.3 RDW 13.3 Plt Count 223 MPV 11.5 Neut % (Auto) 42.4 Lymph % (Auto) 39.3 [place] % (Auto) 7.4 Eos % (Auto) 10.4 Baso % (Auto) 0.4 Neut # (Auto) 2.9 Lymph # (Auto) 2.7 [place] # (Auto) 0.5 Eos # (Auto) 0.7 Baso # (Auto) 0.0 Immature Gran % 0.1 Nucleated RBC % 0.0 Immature Gran # 0.01 Nucleated RBCs # 0.00 Immature Plt Fraction 0.0 Sodium 142 Potassium 4.6 Chloride 107 Carbon Dioxide 27 Anion Gap 12.6 BUN 13 Creatinine 0.70 GFR Calculation 76 BUN/Creatinine Ratio 18.00 Glucose 180 H POC Glucose 289 H Calculated Osmolality 287.1 Calcium 8.9 Magnesium 2.1 Total Creatine Kinase CK-MB (CK-2) Troponin I 05/24/17 07:35 WBC RBC Hgb Hct MCV MCH MCHC RDW Plt Count MPV Neut % (Auto) Lymph % (Auto) [place] % (Auto) Eos % (Auto) Baso % (Auto) Neut # (Auto) Lymph # (Auto) [place] # (Auto) Eos # (Auto) Baso # (Auto) Immature Gran % Nucleated RBC % Immature Gran # Nucleated RBCs # Immature Plt Fraction Sodium Potassium Chloride Carbon Dioxide Anion Gap BUN Creatinine GFR Calculation BUN/Creatinine Ratio Glucose POC Glucose 213 H Calculated Osmolality Calcium Magnesium Total Creatine Kinase CK-MB (CK-2) Troponin I Specialty Discharge - Follow Up or Referrals Follow up with: Boom Diaz MD [Physician] - (First available appointment after discharge for pacemaker interrogation and pacer pocket check.)
--- NOTE | 2017-05-24 11:38 | Discharge Summary ---
Hospital Course - Hospital Course Hospital Course: [employer] ASSOCIATE: Dr. Baca SUMMARY: Ms. Perez is a 87 year old female without known history of coronary artery disease, routinely followed by Dr. Baca. Cardiac risk factors include: Diabetes, hypertension, advanced age, family history of CAD (mother) and former smoker (quit in 1955). 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 Diaz May 16, 2017. Most recent cardiac stress test was performed in 2004. Gated EF estimated at 75%. Normal segmental wall motion. Perfusion scan without evidence to suggest significant reversibility or scar. Low risk study. Echocardiogram performed June 2016 revealed hyperdynamic LV systolic function with ejection fraction estimated at 70% without obvious wall motion abnormality. Moderate pulmonary hypertension with pulmonary artery pressure 48 mmHg. Patient was just recently discharged from the hospital May 17, 2017 after having pacemaker implantation May. Patient was without complications. At the time of discharge home, her Eliquis was held. She has not followed up with Dr. Diaz cardiology clinic yet. Patient represented to [facility] May 22, 2017 with a atrial flutter with rapid ventricular response. Heart rates in the 130s. Eliquis 2.5 mg twice daily reinitiated. Patient did have troponin elevation. This was felt to be secondary to patient's rapid ventricular response. Patient reports great compliance with her metoprolol at home. Patient has now had documented failed attempt with Lopressor. This medication was discontinued and she was started on sotalol 80 mg twice a daily May 22, 2017. Atrial flutter continued. Sotalol was increased to 160 mg twice daily. Patient chemically converted back to atrial paced rhythm early yesterday morning, May 23, 2017. She is now maintained atrial paced rhythm for over 24 hours. EKGs have been monitored. QTc 489 this morning. I discussed with Dr. Toro and feels the patient is stable for discharge home. Patient is anxious for discharge home this morning. Having felt that she has not maximal medical therapy, she will be discharged home in stable condition. She has been given a follow-up appoint with Dr. Baca in 1 week with echocardiogram and EKG. Patient verbalizes understanding of discharge instructions and discharge medications. - Time spent with patient Time with patient DS: Greater than 30 minutes Diagnosis - Discharge Diagnosis (1) Tachyarrhythmia Status: Resolved (2) Elevated troponin Status: Acute (3) Atypical chest pain Status: Resolved (4) Pacemaker Status: Chronic (5) Diabetes mellitus Status: Chronic (6) Hypertension Status: Chronic (7) PAF (paroxysmal atrial fibrillation) Status: Chronic (8) Sick sinus syndrome Status: Resolved (9) Atrial flutter with rapid ventricular response Status: Resolved (10) Chronic anticoagulation Status: Chronic Specialty Discharge - Follow Up or Referrals Follow up with: Kendall Baca MD [Physician] - 1 Week (EKG AND ECHO) Boom Diaz MD [Physician] - (First available appointment after discharge for pacemaker interrogation and pacer pocket check.) Discharge Plan - Discharge Data Disposition: Disch To Home/Self Care Condition at Discharge: Stable Discharge Diet: heart healthy, low fat, low cholesterol, low salt diet Activity: resume usual activities as tolerated Hygiene: may shower Weight Bearing at Discharge: weight bear as tolerated Driving: no restrictions Contact your physician if you experience:: fever over 101, Difficulty voiding, Redness or swelling, Nausea/Vomiting, Shortness of breath, Bleeding, pain uncontrolled by pain medications - Discharge Medications New Sotalol [Betapace] 160 mg PO BID #60 tablet Apixaban [Eliquis] 2.5 mg PO BID #60 tablet Continue Ergocalciferol (Vitamin D2) [Vitamin D2] 50,000 unit PO Q7D Lisinopril 10 mg PO DAILY Pantoprazole Tab [Protonix Tab] 40 mg PO DAILY Aspirin EC Tab 81 mg PO DAILY Glipizide/Metformin HCl [Glipizide-Metformin 2.5-500 mg] 1 each PO BID Discontinued Metoprolol Tartrate Tab [Lopressor Tab] 50 mg PO BID tablet - Follow Up or Referral Follow Up: Boom Diaz MD [Physician] - (First available appointment after discharge for pacemaker interrogation and pacer pocket check.) Kendall Baca MD [Physician] - 1 Week (EKG AND ECHO) - Forms/Instructions Exam - Constitutional Vitals: Period Temp Pulse Resp BP Sys/Daw[place] Pulse Ox Last 24 Hr 97.3 F-100.6 F 60-62 18-20 119-152/55-71 95-97 Exam: General: Appears well with no apparent distress. Pleasant and cooperative. Appears comfortable. HEENT: PERRL, normocephalic, atraumatic. Mucous membranes moist. No jaundice noted. Conjunctiva moist and clear, sclerae anicteric Neck: No JVD/HJR, no thyromegaly or lymphadenopathy noted. Cardiac: Regular rhythm, tachycardia. Soft systolic murmur. Chest wall: Dressing noted to left upper chest. Pacemaker pocket healing well without signs of infection. Lungs: Clear to auscultation without accessory muscle use to assist the respiratory pattern. Not requiring oxygen. Abdomen: Soft, bowel sounds normoactive. Nontender and nondistended. No abdominal bruit or thrill noted. No masses noted. Extremities: No clubbing, cyanosis noted. No edema noted. Upper extremity pulses 2+. Lower extremity pulses 2+. Capillary refill less than 3 seconds. Skin: No unusual lesions or rashes. No skin breakdown appreciated. Neuro: Awake, alert and oriented 3. Moves all extremities well without hemiparesis or paralysis. No essential tremor is appreciated. Discharge Results Procedures and tests throughout hospitalization: Pending Orders 05/25/17 04:00 BMP w/ Mg [Basic Metabolic Panel w/Mg] IN AM CBC [Comp Blood Count Auto Diff] IN AM 05/26/17 04:00 BMP w/ Mg [Basic Metabolic Panel w/Mg] IN AM CBC [Comp Blood Count Auto Diff] IN AM Labs on day of discharge: Labs from last 24 hours 05/24/17 05/24/17 05/24/17 07:35 04:57 04:57 WBC 6.9 RBC 3.36 L Hgb 9.9 L Hct 29.7 L MCV 88.4 MCH 30 MCHC 33.3 RDW 13.3 Plt Count 223 MPV 11.5 Neut % (Auto) 42.4 Lymph % (Auto) 39.3 [place] % (Auto) 7.4 Eos % (Auto) 10.4 Baso % (Auto) 0.4 Neut # (Auto) 2.9 Lymph # (Auto) 2.7 [place] # (Auto) 0.5 Eos # (Auto) 0.7 Baso # (Auto) 0.0 Immature Gran % 0.1 Nucleated RBC % 0.0 Immature Gran # 0.01 Nucleated RBCs # 0.00 Immature Plt Fraction 0.0 Sodium 142 Potassium 4.6 Chloride 107 Carbon Dioxide 27 Anion Gap 12.6 BUN 13 Creatinine 0.70 GFR Calculation 76 BUN/Creatinine Ratio 18.00 Glucose 180 H POC Glucose 213 H Calculated Osmolality 287.1 Calcium 8.9 Magnesium 2.1 Total Creatine Kinase CK-MB (CK-2) Troponin I 05/23/17 05/23/17 05/23/17 18:51 15:09 14:01 WBC RBC Hgb Hct MCV MCH MCHC RDW Plt Count MPV Neut % (Auto) Lymph % (Auto) [place] % (Auto) Eos % (Auto) Baso % (Auto) Neut # (Auto) Lymph # (Auto) [place] # (Auto) Eos # (Auto) Baso # (Auto) Immature Gran % Nucleated RBC % Immature Gran # Nucleated RBCs # Immature Plt Fraction Sodium Potassium Chloride Carbon Dioxide Anion Gap BUN Creatinine GFR Calculation BUN/Creatinine Ratio Glucose POC Glucose 289 H 209 H Calculated Osmolality Calcium Magnesium Total Creatine Kinase 94 CK-MB (CK-2) 4.7 H Troponin I 4.100 H D 05/23/17 11:26 WBC RBC Hgb Hct MCV MCH MCHC RDW Plt Count MPV Neut % (Auto) Lymph % (Auto) [place] % (Auto) Eos % (Auto) Baso % (Auto) Neut # (Auto) Lymph # (Auto) [place] # (Auto) Eos # (Auto) Baso # (Auto) Immature Gran % Nucleated RBC % Immature Gran # Nucleated RBCs # Immature Plt Fraction Sodium Potassium Chloride Carbon Dioxide Anion Gap BUN Creatinine GFR Calculation BUN/Creatinine Ratio Glucose POC Glucose 299 H Calculated Osmolality Calcium Magnesium Total Creatine Kinase CK-MB (CK-2) Troponin I - Imaging and Cardiology Procedure: Chest x-ray: report reviewed by hi DS: Provider Date of admission: 05/22/17 10:33 Primary care physician: Bhaskar Rowley Attending physician on admission: Jake Toro MD Discharging clinician: Mercy Davis NP Expected date of discharge: 05/24/17
--- NOTE | 2017-05-24 11:42 | Physician Query Form ---
CLICK EDIT DOCUMENT TO SELECT QUERY ANSWER --> OK --> SIGN Candice Delarosa RN, CCDS Certified Clinical Social Service Manager W) [phone] (f) [phone] [email or web address] PROVIDERS: Make your selection(s) from the choices in EACH section by typing an "x" and enter comments in the comment section. Please use your independent medical judgment in providing your response. This request does not imply that any particular answer is desired or expected. CLINICAL INDICATORS: (Providers should not edit this section) The medical record indicates that the patient was admitted with AF with RVR, "shortness of breath", BNP of 162# on the 9th that has increased to 606# on the , "Troponin 6.27 this is due to CHF", X-ray on the : "Interval development of diffuse bilateral interstitial infiltrates versus edema superimposed on chronic changes". No Lasix was noted. Gated EF estimated at 75% Please provide further specificity regarding CHF. ACUITY: ( ) Acute ( ) Chronic (x) Acute on Chronic ( ) Clinically unable to determine TYPE: ( ) Systolic (HFrEF - heart failure with reduced systolic function/EF) (x) Diastolic (HFpEF - heart failure with preserved systolic function/EF) ( ) Combined Systolic/Diastolic ( ) Other, please specify: ( ) Clinically unable to determine ( ) Past Medical History of Systolic CHF ( ) Past Medical History of Diastolic CHF ( ) Clinically unable to determine COMMENTS: PLEASE ALSO DOCUMENT RESPONSE IN PROGRESS NOTES AND/OR DISCHARGE SUMMARY Use of terms such as suspected, likely, or probable (associated with a specific diagnosis that is being evaluated, monitored, or treated as if it exists) are acceptable and can be restated in the discharge summary if not ruled out. MTDD
[2017-05-24 12:13] VITALS: BP 135/64
[2017-05-24] MEDS: SODIUM CHLORIDE 0.9% 1,000 ML IV SCH (13:08)
[2017-05-27] MEDS ORDERED: ERGOCALCIFEROL 50,000 UNIT CAPSULE PO SCH (09:00)
--- NOTE | 2017-05-31 13:25 | Order Completion Report ---
See report scanned to EMR
== END 2017-05-24 14:41 | disposition home or self-care (01) | DRG 308 ==
LOC: N.ED 06:44 → N.EDINP 10:33 → N.TELEN 12:18
PROVIDERS: ADMIT Internal Medicine Cardiovascular Disease; ATTEND Internal Medicine Cardiovascular Disease

== ENCOUNTER 2017-09-11 08:18 | Inpatient (IN) ==
[2017-09-11] MEDS ORDERED: ONDANSETRON 4 MG/2 ML VIAL ONE (09:46)
[2017-09-11] MEDS ORDERED: cefTRIAXone 1,000 MG in SODIUM CHLORIDE 0.9% 100 ML IV STA (09:50)
[2017-09-11] MEDS ORDERED: FUROSEMIDE 100 MG/10 ML VIAL IV STA (09:50)
[2017-09-11] MEDS ORDERED: NITROGLYCERIN 2% OINT 1 INCH/GM PACK TOP STA (09:50)
[2017-09-11] MEDS ORDERED: ONDANSETRON 4 MG/2 ML VIAL IV STA (09:50)
[2017-09-11] MEDS ORDERED: methylPREDNISolone SOD SUC 125 MG/2 ML VIAL IV STA (09:50)
[2017-09-11 10:00] LABS: Basophils % 0.3 % (0.0-0.8); Eosinophils % 0.1 % (0.00-10.9); Hematocrit 38.4 VOL% (35.7-47.0); Hemoglobin 12.5 GM/DL (12.0-16.0); Immature Granulocytes % 0.6 %; Immature Granulocytes Absolute 0.08 #; Lymphocytes % 7.6 % (21.3-54.2); Mean Corpuscular HGB Conc 32.6 GM/DL (32-36); Mean Corpuscular Hemoglobin 28 PG (27-34); Mean Corpuscular Volume 86.9 FL (87-102); Mean Platelet Volume 12.5 FL (9.6-12.0); Monocytes # 0.7 10*3/uL (0.11-0.8); Monocytes % 5.3 % (1.7-12.7); Neutrophils # 11.1 10*3/uL (1.4-7.4); Neutrophils % 86.1 % (38.7-73.9); Platelet Count 256 T/CUMM (130-400); Red Blood Count 4.42 MC/CUMM (3.8-5.5); Red Cell Distribution Width 14.4 % (9.3-17.3); White Blood Count 12.9 T/CUMM (4-12)
[2017-09-11] MEDS ORDERED: ALBUTEROL 2.5 MG/3 ML NEB RESP TX SCH (10:00)
[2017-09-11] MEDS ORDERED: FUROSEMIDE 100 MG/10 ML VIAL ONE (10:02)
[2017-09-11] MEDS ORDERED: cefTRIAXone 1,000 MG VIAL ONE (10:02)
[2017-09-11] MEDS ORDERED: NITROGLYCERIN 2% OINT 1 INCH/GM PACK TOP ONE (10:02)
[2017-09-11] MEDS ORDERED: methylPREDNISolone SOD SUC 125 MG/2 ML VIAL ONE (10:02)
[2017-09-11 10:04] LABS: PT Patient Result 10.1 SECS
[2017-09-11 10:06] LABS: Apearance,Urine CLEAR (Clear); Bilirubin,Urine Negative (Negative); Blood, Urine Negative (Negative); Glucose,Urine (UA) >=500 mg/dL (Negative); Ketones,Urine 20 mg/dL (Negative); Nitrite,Urine Negative (Negative); Protein,Urine 100 MG/DL; RBC,Urine 2 /HPF (0-4); Squamous Epithelial Cell,Urine Occasional /HPF (0-10); Urine Color Straw (Yellow); Urine Urobilinogen < 2.0 EU/DL (0.2-1.0); WBC,Urine 1 /HPF (0-6)
[2017-09-11 10:16] LABS: Alanine Aminotransferase 41 U/L (13-56); Albumin 4.3 G/DL (3.4-5.0); Alkaline Phosphatase 72 U/L (45-117); Aspartate Amino Transferase 26 U/L (0-37); Blood Urea Nitrogen 15 MG/DL (7-18); Calcium 9.1 MG/DL (8.5-10.1); Glucose 216 MG/DL (74-106); Magnesium 1.8 MG/DL (1.8-2.4); Osmolality,Calculated 275.2 MOS/KG (273-304); Potassium 4.2 MMOL/L (3.5-5.1); Sodium 134 MMOL/L (136-145); Total Protein 7.7 G/DL (6.4-8.3)
[2017-09-11 10:17] LABS: Troponin I Only 0.076 NG/ML (0.00-0.045)
[2017-09-11] MEDS ORDERED: LABETALOL 20 MG/4 ML SYRINGE IV ONE (10:18)
[2017-09-11] MEDS ORDERED: LABETALOL 20 MG/4 ML SYRINGE IV STA (10:23)
[2017-09-11] MEDS ORDERED: DILTIAZEM 100 MG VIAL.ADD IV ONE (10:41)
[2017-09-11] MEDS ORDERED: SODIUM CHLORIDE 0.9% 100 ML IV ONE (10:41)
[2017-09-11] MEDS: DILTIAZEM INJ 100 MG in SODIUM CHLORIDE 0.9% 100 ML IV SCH (10:50)
[2017-09-11] MEDS ORDERED: SODIUM CHLORIDE 0.9% 500 ML IV STA (10:52)
[2017-09-11] MEDS ORDERED: ACETAMINOPHEN 325 MG TABLET PO PRN (12:44)
[2017-09-11] MEDS ORDERED: ONDANSETRON 4 MG/2 ML VIAL IV PRN (12:44)
[2017-09-11] MEDS ORDERED: hydrALAZINE 20 MG/1 ML VIAL IV PRN (12:49)
[2017-09-11] MEDS ORDERED: GLUCAGON 1 MG VIAL IM PRN (13:03)
[2017-09-11] MEDS ORDERED: DEXTROSE 50% 25 GM/50 ML VIAL IV PRN (13:03)
[2017-09-11] MEDS: APIXABAN 2.5 MG TABLET PO SCH ×2 (14:41→20:58)
[2017-09-11] MEDS: LISINOPRIL 10 MG TABLET PO SCH (14:41)
[2017-09-11] MEDS: INSULIN LISPRO 100 UNIT/ML SUBCUT SCH ×2 (16:55→21:01)
[2017-09-11] MEDS: SOTALOL 80 MG TABLET PO SCH (20:58)
[2017-09-12 05:24] LABS: Basophils % 0.1 % (0.0-0.8); Hematocrit 34.6 VOL% (35.7-47.0); Hemoglobin 11.4 GM/DL (12.0-16.0); Immature Granulocytes % 0.4 %; Immature Granulocytes Absolute 0.04 #; Lymphocytes % 11.3 % (21.3-54.2); Mean Corpuscular HGB Conc 32.9 GM/DL (32-36); Mean Corpuscular Hemoglobin 28 PG (27-34); Mean Corpuscular Volume 85.6 FL (87-102); Mean Platelet Volume 12.3 FL (9.6-12.0); Monocytes # 0.6 10*3/uL (0.11-0.8); Monocytes % 6.7 % (1.7-12.7); Neutrophils # 7.3 10*3/uL (1.4-7.4); Neutrophils % 81.5 % (38.7-73.9); Platelet Count 255 T/CUMM (130-400); Red Blood Count 4.04 MC/CUMM (3.8-5.5); Red Cell Distribution Width 14.5 % (9.3-17.3); White Blood Count 8.9 T/CUMM (4-12)
[2017-09-12 06:06] LABS: Osmolality,Calculated 283.8 MOS/KG (273-304); Thyroid Stimulating Hormone 0.823 uIU/ml (0.358-3.74)
[2017-09-12 06:08] LABS: Troponin I Only 0.075 NG/ML (0.00-0.045)
[2017-09-12] MEDS: DILTIAZEM INJ 100 MG in SODIUM CHLORIDE 0.9% 100 ML IV SCH ×2 (07:13→13:54)
[2017-09-12] MEDS: SOTALOL 80 MG TABLET PO SCH ×2 (08:38→20:31)
[2017-09-12] MEDS: INSULIN LISPRO 100 UNIT/ML SUBCUT SCH ×4 (08:38→20:31)
[2017-09-12] MEDS: LISINOPRIL 10 MG TABLET PO SCH (08:39)
[2017-09-12] MEDS: ASPIRIN EC 81 MG TABLET PO SCH (08:39)
[2017-09-12] MEDS: APIXABAN 2.5 MG TABLET PO SCH ×2 (08:39→20:27)
[2017-09-12] MEDS: glipiZIDE 5 MG TABLET PO SCH ×2 (14:32→20:31)
[2017-09-12] MEDS: metFORMIN 500 MG TABLET PO SCH (20:31)
[2017-09-12] MEDS ORDERED: LISINOPRIL 5 MG TABLET PO SCH (20:41)
[2017-09-13 05:53] LABS: Basophils % 0.2 % (0.0-0.8); Eosinophils # 0.2 10*3/uL (0.0-0.87); Eosinophils % 1.4 % (0.00-10.9); Hematocrit 31.2 VOL% (35.7-47.0); Hemoglobin 10.4 GM/DL (12.0-16.0); Immature Granulocytes % 0.4 %; Immature Granulocytes Absolute 0.04 #; Mean Corpuscular HGB Conc 33.3 GM/DL (32-36); Mean Corpuscular Hemoglobin 28 PG (27-34); Mean Corpuscular Volume 85.2 FL (87-102); Mean Platelet Volume 12.2 FL (9.6-12.0); Monocytes % 8.9 % (1.7-12.7); Neutrophils % 62.1 % (38.7-73.9); Platelet Count 239 T/CUMM (130-400); Red Blood Count 3.66 MC/CUMM (3.8-5.5); Red Cell Distribution Width 14.7 % (9.3-17.3); White Blood Count 11.3 T/CUMM (4-12)
[2017-09-13 06:20] LABS: Calcium 8.7 MG/DL (8.5-10.1); Magnesium 2.2 MG/DL (1.8-2.4); Osmolality,Calculated 284.4 MOS/KG (273-304); Potassium 4.2 MMOL/L (3.5-5.1)
[2017-09-13] MEDS: INSULIN LISPRO 100 UNIT/ML SUBCUT SCH (08:12)
[2017-09-13] MEDS: APIXABAN 2.5 MG TABLET PO SCH (08:56)
[2017-09-13] MEDS: ASPIRIN EC 81 MG TABLET PO SCH (08:57)
[2017-09-13] MEDS: SOTALOL 80 MG TABLET PO SCH (08:57)
[2017-09-13] MEDS: metFORMIN 500 MG TABLET PO SCH (08:57)
[2017-09-13] MEDS: glipiZIDE 5 MG TABLET PO SCH (08:58)
[2017-09-13] MEDS ORDERED: FLUoxetine 10 MG CAPSULE PO SCH (09:00)
[2017-09-13] MEDS ORDERED: DILTIAZEM 30 MG TABLET PO SCH (09:00)
[2017-09-13 10:56] VITALS: BP 153/63
[2017-09-14] MEDS ORDERED: DILTIAZEM CD 120 MG CAPSULE PO SCH (09:00)
== END 2017-09-13 11:38 | disposition home or self-care (01) | DRG 308 ==
LOC: N.ED 08:18 → N.EDINP 11:33 → N.TELEN 13:50
PROVIDERS: ADMIT Internal Medicine; ATTEND Internal Medicine

== ENCOUNTER 2017-11-27 18:37 | Inpatient (IN) ==
[2017-11-27] MEDS ORDERED: ONDANSETRON 4 MG/2 ML VIAL IV STA (20:34)
[2017-11-27] MEDS ORDERED: SODIUM CHLORIDE 0.9% 1,000 ML IV STA (20:34)
[2017-11-27] MEDS ORDERED: ALUM/MAG/SIMETH/LIDO VISC 1:1 30 ML BOTTLE PO STA (20:34)
[2017-11-27] MEDS ORDERED: PANTOPRAZOLE 40 MG VIAL IV STA (20:34)
[2017-11-27] MEDS ORDERED: PANTOPRAZOLE 40 MG VIAL IV ONE (20:59)
[2017-11-27] MEDS ORDERED: ONDANSETRON 4 MG/2 ML VIAL ONE (20:59)
[2017-11-27] MEDS ORDERED: ALUM/MAG/SIMETH/LIDO VISC 1:1 30 ML BOTTLE PO ONE (20:59)
[2017-11-27 21:24] LABS: Basophils % 0.2 % (0.0-0.8); Hemoglobin 13.9 GM/DL (12.0-16.0); Immature Granulocytes % 0.2 %; Immature Granulocytes Absolute 0.02 #; Lymphocytes # 0.6 10*3/uL (1.4-4.0); Lymphocytes % 6.1 % (21.3-54.2); Mean Corpuscular HGB Conc 33.9 GM/DL (32-36); Mean Corpuscular Hemoglobin 29 PG (27-34); Mean Corpuscular Volume 86.5 FL (87-102); Mean Platelet Volume 11.4 FL (9.6-12.0); Monocytes # 0.2 10*3/uL (0.11-0.8); Monocytes % 1.8 % (1.7-12.7); Neutrophils # 9.7 10*3/uL (1.4-7.4); Neutrophils % 91.7 % (38.7-73.9); Platelet Count 349 T/CUMM (130-400); Red Blood Count 4.74 MC/CUMM (3.8-5.5); Red Cell Distribution Width 14.6 % (9.3-17.3); White Blood Count 10.6 T/CUMM (4-12)
[2017-11-27 21:48] LABS: Band Neutrophils 3 % (0-10); Lactic Acid 1.5 MMOL/L (0.4-2.0); Lymphocytes 8 % (20-55); Segmented Neutrophils 88 % (50-85); Total Cells Counted 100
[2017-11-27 21:49] LABS: Alanine Aminotransferase 22 U/L (13-56); Albumin 4.5 G/DL (3.4-5.0); Alkaline Phosphatase 74 U/L (45-117); Amylase 56 U/L (25-115); Anisocytosis 1+; Aspartate Amino Transferase 13 U/L (0-37); Blood Urea Nitrogen 16 MG/DL (7-18); Calcium 9.9 MG/DL (8.5-10.1); Glucose 237 MG/DL (74-106); Osmolality,Calculated 276.2 MOS/KG (273-304); Platelet Estimate Normal; Potassium 4.6 MMOL/L (3.5-5.1); Sodium 134 MMOL/L (136-145); Total Protein 8.5 G/DL (6.4-8.3); Troponin I Only < 0.015 NG/ML (0.00-0.045)
[2017-11-27 22:29] LABS: Apearance,Urine Slightly Hazy (Clear); Bacteria,Urine Occasional /HPF (Few); Bilirubin,Urine Negative (Negative); Blood, Urine Negative (Negative); Glucose,Urine (UA) >=500 mg/dL (Negative); Hyaline Casts,Urine 1 /LPF (0-3); Ketones,Urine 20 mg/dL (Negative); Mucus,Urine Occasional /LPF (Occasional); Nitrite,Urine Negative (Negative); Protein,Urine 30 MG/DL; RBC,Urine 2 /HPF (0-4); Squamous Epithelial Cell,Urine Occasional /HPF (0-10); Urine Color Yellow (Yellow); Urine Urobilinogen < 2.0 EU/DL (0.2-1.0); WBC,Urine 69 /HPF (0-6)
[2017-11-28] MEDS ORDERED: GLUCAGON 1 MG VIAL IM PRN (01:33)
[2017-11-28] MEDS ORDERED: ONDANSETRON 4 MG/2 ML VIAL IV PRN (01:33)
[2017-11-28] MEDS ORDERED: ACETAMINOPHEN 325 MG TABLET PO PRN (01:33)
[2017-11-28] MEDS ORDERED: HYDROmorphone 2 MG/1 ML VIAL IV PRN (01:33)
[2017-11-28] MEDS ORDERED: DEXTROSE 50% 25 GM/50 ML VIAL IV PRN (01:33)
[2017-11-28] MEDS: PIPERACILLIN/TAZOBACTAM 3,375 MG in SODIUM CHLORIDE 0.9% 100 ML IV SCH ×3 (02:51→17:41)
[2017-11-28] MEDS: SODIUM CHLORIDE 0.9% 1,000 ML IV SCH ×2 (02:51→18:24)
[2017-11-28 08:47] LABS: Basophils % 0.1 % (0.0-0.8); Eosinophils % 0.3 % (0.00-10.9); Hematocrit 34.8 VOL% (35.7-47.0); Immature Granulocytes % 0.4 %; Immature Granulocytes Absolute 0.06 #; Lymphocytes # 1.1 10*3/uL (1.4-4.0); Lymphocytes % 7.7 % (21.3-54.2); Mean Corpuscular Hemoglobin 29 PG (27-34); Mean Corpuscular Volume 88.8 FL (87-102); Mean Platelet Volume 11.3 FL (9.6-12.0); Monocytes % 7.4 % (1.7-12.7); Neutrophils # 11.6 10*3/uL (1.4-7.4); Neutrophils % 84.1 % (38.7-73.9); Platelet Count 293 T/CUMM (130-400); Red Blood Count 3.92 MC/CUMM (3.8-5.5); Red Cell Distribution Width 14.7 % (9.3-17.3)
[2017-11-28 08:48] LABS: Hemoglobin 11.5 GM/DL (12.0-16.0); White Blood Count 13.8 T/CUMM (4-12)
[2017-11-28] MEDS ORDERED: NON-FORMULARY MEDICATION (Linaclotide [Linzess] 72 MCG) PO SCH (09:00)
[2017-11-28] MEDS ORDERED: metFORMIN 500 MG TABLET PO SCH (09:00)
[2017-11-28] MEDS ORDERED: APIXABAN 2.5 MG TABLET PO SCH (09:00)
[2017-11-28 09:03] LABS: Lactic Acid 1.7 MMOL/L (0.4-2.0)
[2017-11-28 09:19] LABS: Albumin 3.5 G/DL (3.4-5.0); Bilirubin,Total 0.8 MG/DL (0.2-1.0); Calcium 8.6 MG/DL (8.5-10.1); Osmolality,Calculated 279.7 MOS/KG (273-304); Potassium 4.2 MMOL/L (3.5-5.1); Total Protein 6.4 G/DL (6.4-8.3)
[2017-11-28] MEDS: INSULIN REGULAR 100 UNIT/ML SUBCUT SCH ×4 (09:21→21:17)
[2017-11-28] MEDS: METOPROLOL TARTRATE 50 MG TABLET PO SCH ×2 (09:38→21:22)
[2017-11-28] MEDS: DILTIAZEM CD 120 MG CAPSULE PO SCH (09:39)
[2017-11-28] MEDS: glipiZIDE 5 MG TABLET PO SCH ×2 (09:39→21:22)
[2017-11-28] MEDS: AMIODARONE 200 MG TABLET PO SCH ×2 (09:39→21:22)
[2017-11-28] MEDS: LISINOPRIL 5 MG TABLET PO SCH (09:40)
[2017-11-28] MEDS: ASPIRIN EC 81 MG TABLET PO SCH (10:26)
[2017-11-28] MEDS: POLYETHYLENE GLYCOL POWDER 17 GM PACK PO SCH (10:27)
[2017-11-28] MEDS: PANTOPRAZOLE 40 MG VIAL IV SCH (10:27)
[2017-11-28] MEDS: FLUoxetine 10 MG CAPSULE PO SCH (10:27)
[2017-11-28] MEDS: ENOXAPARIN 40 MG/0.4 ML SYRINGE SUBCUT SCH (11:24)
[2017-11-28] MEDS ORDERED: hydrALAZINE 20 MG/1 ML VIAL IV PRN (12:04)
[2017-11-28] MEDS: DEXTROSE 5% NACL 0.45% 1,000 ML IV SCH (17:18)
[2017-11-29] MEDS: PIPERACILLIN/TAZOBACTAM 3,375 MG in SODIUM CHLORIDE 0.9% 100 ML IV SCH ×3 (04:32→21:01)
[2017-11-29] MEDS: DEXTROSE 5% NACL 0.45% 1,000 ML IV SCH ×2 (04:35→16:38)
[2017-11-29 06:20] LABS: Basophils % 0.7 % (0.0-0.8); Eosinophils # 0.3 10*3/uL (0.0-0.87); Eosinophils % 4.8 % (0.00-10.9); Hematocrit 31.4 VOL% (35.7-47.0); Hemoglobin 10.6 GM/DL (12.0-16.0); Immature Granulocytes % 0.2 %; Immature Granulocytes Absolute 0.01 #; Lymphocytes # 1.7 10*3/uL (1.4-4.0); Lymphocytes % 32.3 % (21.3-54.2); Mean Corpuscular HGB Conc 33.8 GM/DL (32-36); Mean Corpuscular Hemoglobin 30 PG (27-34); Mean Corpuscular Volume 87.5 FL (87-102); Monocytes # 0.3 10*3/uL (0.11-0.8); Monocytes % 6.3 % (1.7-12.7); Neutrophils % 55.7 % (38.7-73.9); Platelet Count 245 T/CUMM (130-400); Red Blood Count 3.59 MC/CUMM (3.8-5.5); Red Cell Distribution Width 14.6 % (9.3-17.3); White Blood Count 5.4 T/CUMM (4-12)
[2017-11-29 06:45] LABS: Albumin 3.2 G/DL (3.4-5.0); Bilirubin,Total 0.7 MG/DL (0.2-1.0); Calcium 8.4 MG/DL (8.5-10.1); Osmolality,Calculated 273.7 MOS/KG (273-304); Potassium 3.7 MMOL/L (3.5-5.1); Total Protein 5.7 G/DL (6.4-8.3)
[2017-11-29 06:48] LABS: Risk Ratio 2.3; VLDL CHOLESTEROL 22.4 MG/DL
[2017-11-29] MEDS: FLUoxetine 10 MG CAPSULE PO SCH (08:56)
[2017-11-29] MEDS: ASPIRIN EC 81 MG TABLET PO SCH (08:56)
[2017-11-29] MEDS: DILTIAZEM CD 120 MG CAPSULE PO SCH (08:56)
[2017-11-29] MEDS: METOPROLOL TARTRATE 50 MG TABLET PO SCH ×2 (08:56→20:59)
[2017-11-29] MEDS: PANTOPRAZOLE 40 MG VIAL IV SCH (08:57)
[2017-11-29] MEDS: AMIODARONE 200 MG TABLET PO SCH ×2 (08:57→20:59)
[2017-11-29] MEDS: LISINOPRIL 5 MG TABLET PO SCH (08:57)
[2017-11-29] MEDS: INSULIN REGULAR 100 UNIT/ML SUBCUT SCH ×4 (09:00→21:58)
[2017-11-29] MEDS: glipiZIDE 5 MG TABLET PO SCH ×2 (09:00→21:00)
[2017-11-29] MEDS: POLYETHYLENE GLYCOL POWDER 17 GM PACK PO SCH (09:00)
[2017-11-29] MEDS ORDERED: LISINOPRIL 10 MG TABLET PO SCH (09:40)
[2017-11-29] MEDS: ENOXAPARIN 40 MG/0.4 ML SYRINGE SUBCUT SCH (11:45)
[2017-11-30 04:56] LABS: Basophils % 0.7 % (0.0-0.8); Eosinophils # 0.4 10*3/uL (0.0-0.87); Eosinophils % 6.4 % (0.00-10.9); Hematocrit 33.6 VOL% (35.7-47.0); Immature Granulocytes % 0.3 %; Immature Granulocytes Absolute 0.02 #; Mean Corpuscular HGB Conc 32.7 GM/DL (32-36); Mean Corpuscular Hemoglobin 30 PG (27-34); Mean Corpuscular Volume 90.3 FL (87-102); Mean Platelet Volume 11.2 FL (9.6-12.0); Monocytes # 0.5 10*3/uL (0.11-0.8); Monocytes % 8.8 % (1.7-12.7); Neutrophils % 49.8 % (38.7-73.9); Platelet Count 260 T/CUMM (130-400); Red Blood Count 3.72 MC/CUMM (3.8-5.5); Red Cell Distribution Width 14.5 % (9.3-17.3); White Blood Count 5.9 T/CUMM (4-12)
[2017-11-30] MEDS: PIPERACILLIN/TAZOBACTAM 3,375 MG in SODIUM CHLORIDE 0.9% 100 ML IV SCH ×2 (05:13→12:04)
[2017-11-30 05:26] LABS: Calcium 8.9 MG/DL (8.5-10.1); Osmolality,Calculated 280.3 MOS/KG (273-304); Potassium 3.9 MMOL/L (3.5-5.1)
[2017-11-30] MEDS ORDERED: LISINOPRIL 10 MG TABLET PO SCH (09:00)
[2017-11-30] MEDS: INSULIN REGULAR 100 UNIT/ML SUBCUT SCH ×3 (09:29→16:16)
[2017-11-30] MEDS: POLYETHYLENE GLYCOL POWDER 17 GM PACK PO SCH (09:30)
[2017-11-30] MEDS: DILTIAZEM CD 120 MG CAPSULE PO SCH (09:32)
[2017-11-30] MEDS: ASPIRIN EC 81 MG TABLET PO SCH (09:33)
[2017-11-30] MEDS: FLUoxetine 10 MG CAPSULE PO SCH (09:33)
[2017-11-30] MEDS: METOPROLOL TARTRATE 50 MG TABLET PO SCH (09:34)
[2017-11-30] MEDS: AMIODARONE 200 MG TABLET PO SCH (09:34)
[2017-11-30] MEDS: glipiZIDE 5 MG TABLET PO SCH (09:35)
[2017-11-30] MEDS: PANTOPRAZOLE 40 MG VIAL IV SCH (09:54)
[2017-11-30] MEDS: ENOXAPARIN 40 MG/0.4 ML SYRINGE SUBCUT SCH (10:34)
[2017-11-30] MEDS ORDERED: VANCOMYCIN INJ 1,000 MG in SODIUM CHLORIDE 0.9% 250 ML IV SCH (16:00)
[2017-11-30 17:01] VITALS: BP 141/80
[2017-11-30] MEDS ORDERED: ATORVASTATIN 10 MG TABLET PO SCH (21:00)
[2017-12-02] MEDS ORDERED: ERGOCALCIFEROL 50,000 UNIT CAPSULE PO SCH (00:40)
[2017-12-04 13:47] LABS: CATU Collection Duration 24 h; CATU Dopamine Frac 82 mcg/24 h (65-400); CATU Epinephrine Frac 3.3 mcg/24 h (<21); CATU Norepinephrine Frac 31 mcg/24 h (15-80); CATU Specimen Volume 2575 mL
[2017-12-06 18:11] LABS: Normetanephrine, U 306 mcg/24 h; Total Metanephrines, U 391 mcg/24 h; Urine Volume 2575 mL
== END 2017-11-30 18:45 | disposition home or self-care (01) | DRG 389 ==
LOC: N.ED 18:37 → N.EDINP 11-28 00:37 → N.3E 11-28 01:08
PROVIDERS: ADMIT Surgery; ATTEND Surgery

== ENCOUNTER 2020-03-03 22:41 | Inpatient (IN) ==
[2020-03-03] MEDS ORDERED: SODIUM CHLORIDE 0.9% 1,000 ML IV STA (23:25)
[2020-03-03 23:57] LABS: Basophils % 0.1 % (0.0-0.8); Hematocrit 29.9 VOL% (35.7-47.0); Hemoglobin 9.1 GM/DL (12.0-16.0); Immature Granulocytes % 1.2 %; Immature Granulocytes Absolute 0.16 #; Lymphocytes # 0.8 10*3/uL (1.4-4.0); Lymphocytes % 5.8 % (21.3-54.2); Mean Corpuscular HGB Conc 30.4 GM/DL (32-36); Mean Corpuscular Volume 82.8 FL (87-102); Mean Platelet Volume 10.7 FL (9.6-12.0); Monocytes % 3.4 % (1.7-12.7); Neutrophils % 89.5 % (38.7-73.9); Platelet Count 393 T/CUMM (130-400); Red Blood Count 3.61 MC/CUMM (3.8-5.5); Red Cell Distribution Width 16.4 % (9.3-17.3); White Blood Count 13.4 T/CUMM (4-12)
[2020-03-04 00:17] LABS: Alanine Aminotransferase 201 U/L (13-56); Albumin 3.2 G/DL (3.4-5.0); Alkaline Phosphatase 79 U/L (45-117); Amylase 31 U/L (25-115); Aspartate Amino Transferase 96 U/L (0-37); Blood Urea Nitrogen 12 MG/DL (7-18); Calcium 8.7 MG/DL (8.5-10.1); Estimated Glom Filtration Rate 49 ML/MIN; Glucose 437 MG/DL (74-106); Osmolality,Calculated 275.1 MOS/KG (273-304); Total Protein 6.7 G/DL (6.4-8.3)
[2020-03-04 00:21] LABS: Troponin I 0.409 NG/ML (0.00-0.045)
[2020-03-04 00:22] LABS: Apearance,Urine CLEAR (Clear); Bilirubin,Urine Negative (Negative); Blood, Urine Negative (Negative); Glucose,Urine (UA) >=500 mg/dL (Negative); Ketones,Urine 20 mg/dL (Negative); Mucus,Urine Occasional /LPF (Occasional); Nitrite,Urine Negative (Negative); Protein,Urine Negative; RBC,Urine <1 /HPF (0-4); Urine Color Straw (Yellow); Urine Specific Gravity 1.026 (1.001-1.035); Urine Urobilinogen < 2.0 EU/DL (0.2-1.0)
[2020-03-04 00:23] LABS: PT Patient Result 10.9 SECS (9.8-11.9); Partial Thromboplastin Time 23.2 SECS (23.9-33.8)
[2020-03-04 00:24] LABS: Thyroid Stimulating Hormone 4.07 uIU/ml (0.358-3.74)
[2020-03-04] MEDS ORDERED: INSULIN REGULAR 100 UNIT/ML IV ONE ×2 (00:36→03:44)
[2020-03-04] MEDS ORDERED: LEVOFLOXACIN INJ 750 MG in PREMIX 1 EACH IV STA (00:36)
[2020-03-04] MEDS ORDERED: ONDANSETRON 4 MG/2 ML VIAL ONE (01:04)
[2020-03-04] MEDS ORDERED: ONDANSETRON 4 MG/2 ML VIAL IV STA (01:25)
[2020-03-04] MEDS ORDERED: SODIUM CHLORIDE 0.9% 1,000 ML IV STA (03:11)
[2020-03-04] MEDS ORDERED: DEXTROSE 50% 25 GM/50 ML VIAL IV PRN ×2 (03:44→06:54)
[2020-03-04] MEDS ORDERED: diphenhydrAMINE CAP 25 MG CAPSULE PO PRN (03:44)
[2020-03-04] MEDS ORDERED: ZALEPLON 5 MG CAPSULE PO PRN (03:44)
[2020-03-04] MEDS ORDERED: ACETAMINOPHEN 325 MG TABLET PO PRN (03:44)
[2020-03-04] MEDS ORDERED: guaiFENesin/DM ER 600-30 MG TABLET PO PRN (03:44)
[2020-03-04] MEDS ORDERED: PROMETHAZINE 25 MG/1 ML VIAL IM PRN (03:44)
[2020-03-04] MEDS ORDERED: GLUCAGON 1 MG VIAL IM PRN ×2 (03:44→06:54)
[2020-03-04] MEDS ORDERED: MORPHINE 4 MG/1 ML VIAL IV PRN (03:44)
[2020-03-04] MEDS ORDERED: hydrALAZINE 20 MG/1 ML VIAL IV PRN (03:44)
[2020-03-04] MEDS ORDERED: NICOTINE 21 MG/24 HR PATCH TRANSDERM PRN (03:44)
[2020-03-04] MEDS ORDERED: POTASSIUM CHLORIDE 20 MEQ TABLET PO PRN (03:48)
[2020-03-04 03:59] LABS: ABG Base Excess -3.1 MMOL/L (-2.5-2.5); ABG HCO3 21.1 MMOL/L (20-26); ABG Oxygen Saturation 92.1 % (95-100); ABG PCO2 33.6 MM HG (35-48); ABG PH 7.415 (7.35-7.45); ABG PO2 66.8 MM HG (80-95); ABG TCO2 22.1 MMOL/L (23-27); Allen Test Positive
[2020-03-04] MEDS: ONDANSETRON 4 MG/2 ML VIAL IV PRN ×3 (04:19→18:05)
[2020-03-04 05:35] LABS: Albumin 2.7 G/DL (3.4-5.0); Bilirubin,Total 0.5 MG/DL (0.2-1.0); Calcium 7.6 MG/DL (8.5-10.1); Osmolality,Calculated 274.4 MOS/KG (273-304); Total Protein 5.9 G/DL (6.4-8.3)
[2020-03-04 05:52] LABS: Albumin 2.7 G/DL (3.4-5.0); Bilirubin,Direct 0.27 MG/DL (0.0-0.20); Bilirubin,Indirect 0.3 MG/DL (0.0-1.0); Bilirubin,Total 0.6 MG/DL (0.2-1.0); Total Protein 5.5 G/DL (6.4-8.3)
[2020-03-04] MEDS ORDERED: MAGNESIUM SULF RIDER 2 GM in PREMIX 1 EACH IV PRN (05:55)
[2020-03-04] MEDS ORDERED: MAGNESIUM SULF RIDER 4 GM in PREMIX 1 EACH IV PRN (05:55)
[2020-03-04] MEDS ORDERED: INSULIN REGULAR 100 UNIT/ML SUBCUT SCH (06:00)
[2020-03-04] MEDS: SODIUM CHLORIDE 0.9% 1,000 ML IV SCH ×2 (06:18→13:19)
[2020-03-04 06:29] LABS: Hepatitis B Core IgM Quant 0.17 Index; Hepatitis B Surface Ag Quant < 0.10 Index; Hepatitis B Surface Ag Result Negative (Negative); Hepatitis C Virus Ab Quant 0.02 Index; Hepatitis C Virus Ab Result Negative (Negative)
[2020-03-04] MEDS: PIPERACILLIN/TAZOBACTAM 3,375 MG in SODIUM CHLORIDE 0.9% 100 ML IV SCH ×2 (07:45→16:12)
[2020-03-04] MEDS: INSULIN REGULAR 100 UNIT/ML SUBCUT SCH ×4 (08:05→20:43)
[2020-03-04] MEDS ORDERED: APIXABAN 2.5 MG TABLET PO SCH (09:00)
[2020-03-04] MEDS: ASPIRIN EC 81 MG TABLET PO SCH (09:14)
[2020-03-04] MEDS: lisinopriL 10 MG TABLET PO SCH (09:14)
[2020-03-04] MEDS: METOPROLOL TARTRATE 50 MG TABLET PO SCH ×2 (09:14→20:35)
[2020-03-04 11:15] LABS: CKMB % 10.4 %
[2020-03-04 11:17] LABS: Troponin I 3.35 NG/ML (0.00-0.045)
[2020-03-04] MEDS ORDERED: ASPIRIN CHEW 81 MG TABLET PO ONE ×2 (14:12→14:13)
[2020-03-04] MEDS ORDERED: NITROGLYCERIN SL 0.4 MG TABLET SL ONE (14:12)
[2020-03-04] MEDS ORDERED: NITROGLYCERIN SL 0.4 MG TABLET SL PRN (14:13)
[2020-03-04] MEDS: MORPHINE 4 MG/1 ML VIAL IV PRN (14:14)
[2020-03-04 14:28] LABS: ABG Base Excess -5.4 MMOL/L (-2.5-2.5); ABG HCO3 19.9 MMOL/L (20-26); ABG Oxygen Saturation 96.7 % (95-100); ABG PCO2 34.4 MM HG (35-48); ABG PO2 93.1 MM HG (80-95); ABG TCO2 18.2 MMOL/L (23-27)
[2020-03-04] MEDS ORDERED: METOPROLOL TARTRATE 5 MG/5 ML VIAL IV PRN (14:33)
[2020-03-04 14:34] LABS: Basophils % 0.1 % (0.0-0.8); Eosinophils % 0.1 % (0.00-10.9); Hematocrit 26.5 VOL% (35.7-47.0); Hemoglobin 8.1 GM/DL (12.0-16.0); Immature Granulocytes % 1.1 %; Immature Granulocytes Absolute 0.22 #; Lymphocytes # 2.2 10*3/uL (1.4-4.0); Lymphocytes % 11.1 % (21.3-54.2); Mean Corpuscular HGB Conc 30.6 GM/DL (32-36); Mean Corpuscular Volume 83.3 FL (87-102); Mean Platelet Volume 10.6 FL (9.6-12.0); Monocytes % 7.5 % (1.7-12.7); Neutrophils % 80.1 % (38.7-73.9); Platelet Count 408 T/CUMM (130-400); Red Blood Count 3.18 MC/CUMM (3.8-5.5); Red Cell Distribution Width 16.6 % (9.3-17.3); White Blood Count 19.4 T/CUMM (4-12)
[2020-03-04 14:54] LABS: Albumin 2.8 G/DL (3.4-5.0); Bilirubin,Total 0.5 MG/DL (0.2-1.0); Calcium 7.6 MG/DL (8.5-10.1); Osmolality,Calculated 272.4 MOS/KG (273-304); Total Protein 5.7 G/DL (6.4-8.3)
[2020-03-04] MEDS: ENOXAPARIN 60 MG/0.6 ML SYRINGE SUBCUT SCH (15:22)
[2020-03-04] MEDS: SOTALOL 80 MG TABLET PO SCH ×2 (15:23→20:35)
[2020-03-04] MEDS: FUROSEMIDE 20 MG/2 ML VIAL IV SCH (17:03)
[2020-03-04] MEDS ORDERED: LEVOFLOXACIN INJ 500 MG in PREMIX 1 EACH IV SCH (21:00)
[2020-03-04] MEDS ORDERED: INSULIN GLARGINE 100 UNIT/ML SUBCUT SCH (21:00)
[2020-03-04] MEDS ORDERED: EZETIMIBE 10 MG TABLET PO SCH (21:00)
[2020-03-05] MEDS: PIPERACILLIN/TAZOBACTAM 3,375 MG in SODIUM CHLORIDE 0.9% 100 ML IV SCH ×2 (01:01→09:02)
[2020-03-05] MEDS: MORPHINE 4 MG/1 ML VIAL IV PRN (03:45)
[2020-03-05] MEDS: ONDANSETRON 4 MG/2 ML VIAL IV PRN (03:48)
[2020-03-05 05:00] VITALS: BP 91/59
[2020-03-05 05:30] LABS: Basophils % 0.2 % (0.0-0.8); Eosinophils % 0.1 % (0.00-10.9); Hematocrit 29.6 VOL% (35.7-47.0); Hemoglobin 9.1 GM/DL (12.0-16.0); Immature Granulocytes % 1.5 %; Immature Granulocytes Absolute 0.34 #; Lymphocytes # 1.2 10*3/uL (1.4-4.0); Lymphocytes % 5.3 % (21.3-54.2); Mean Corpuscular HGB Conc 30.7 GM/DL (32-36); Mean Corpuscular Volume 83.4 FL (87-102); Mean Platelet Volume 10.4 FL (9.6-12.0); Monocytes % 7.3 % (1.7-12.7); Neutrophils % 85.6 % (38.7-73.9); Platelet Count 434 T/CUMM (130-400); Red Blood Count 3.55 MC/CUMM (3.8-5.5); Red Cell Distribution Width 16.9 % (9.3-17.3); White Blood Count 22.8 T/CUMM (4-12)
[2020-03-05 06:10] LABS: Eosinophils 1 % (0-10); Hypochromasia 1+; Lymphocytes 4 % (20-55); Ovalocytes Slight; Platelet Estimate Adequate; Segmented Neutrophils 89 % (50-85); Total Cells Counted 100
[2020-03-05 06:35] LABS: % Iron Saturation 8.8 % (18-50); Bilirubin,Total 1.9 MG/DL (0.2-1.0); Ferritin 92.6 ng/ml (8-252); Osmolality,Calculated 273.8 MOS/KG (273-304); Total Protein 6.3 G/DL (6.4-8.3)
[2020-03-05 06:40] LABS: Risk Ratio 2.97
[2020-03-05] MEDS: INSULIN REGULAR 100 UNIT/ML SUBCUT SCH (09:00)
[2020-03-05] MEDS: ASPIRIN EC 81 MG TABLET PO SCH (09:01)
[2020-03-05] MEDS: SOTALOL 80 MG TABLET PO SCH (09:01)
[2020-03-05] MEDS: METOPROLOL TARTRATE 50 MG TABLET PO SCH (09:01)
[2020-03-05] MEDS: ENOXAPARIN 60 MG/0.6 ML SYRINGE SUBCUT SCH (09:01)
[2020-03-05] MEDS: FUROSEMIDE 20 MG/2 ML VIAL IV SCH (09:01)
[2020-03-05] MEDS: lisinopriL 10 MG TABLET PO SCH (09:02)
== END 2020-03-05 07:20 | disposition expired | DRG 291 ==
LOC: EDUNIT# → EDBD → N.ED 22:41 → N.EDINP 03-04 02:56 → N.2E 03-04 12:06
PROVIDERS: ADMIT Internal Medicine; ATTEND Internal Medicine